=== PATIENT | female | born 1950 | race Caucasian/White ===

== ENCOUNTER → 2017-11-08 11:42 | Outpatient (CLI) | payer MEDICARE, OTHER, SELFPAY ==
[2017-11-08 14:31] LABS: BUN 12 mg/dL (7-18); Chloride 101 mmol/L (98-107); Creatinine, Serum 0.75 mg/dL (0.55-1.02); EST Glomerular Filtration Rate 83 mL/min (>60); Est Glom Filt Rate - Afr Amer 100 mL/min (>60); Glucose 79 mg/dL (74-106); Sodium Level 137 mmol/L (136-145)
[2017-11-09 08:26] LABS: Vitamin D,25 Hydroxy 53.9 ng/mL (29.95-100.01)
== END ==
PROVIDERS: Family Provider Family Medicine; PCP Family Medicine
DX: M81.0 Age-related osteoporosis without current pathological fracture (principal)
CPT/HCPCS: 36415; 80069; 82306

== ENCOUNTER → 2017-11-21 15:28 | Outpatient (CLI) | payer MEDICARE, OTHER, SELFPAY ==
--- NOTE | 2017-11-21 15:34 | RAD_ITS ---
STUDY: X-RAY - PELVIS AND BILATERAL HIPS REASON FOR EXAM: Female, 67 years old. Chronic pain TECHNIQUE: Radiological exam, hip, bilateral, with pelvis when performed; 3-4 views COMPARISON: None. FINDINGS: There is a non-specific bowel gas pattern. Normal visualized soft tissue structures. Normal bilateral iliac wings, sacroiliac joints and visualized sacrum. Normal bilateral superior and inferior pubic rami. Normal pubic symphysis. Normal bilateral ischial tuberosities. 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 Probable 2 cm subchondral cyst. Sclerotic and mildly irregular acetabulum. There is moderate articular joint space narrowing of the right hip. Normal visualized left femoral head. Normal left acetabulum. There is mild articular joint space narrowing of the left hip. RAD/Hips B/L min 2 views w/ Pelvis IMPRESSION: No acute fracture or dislocation. Degenerative changes of the right hip. Electronically Signed: Keshawn Lamb MD at 16:46 EDT , Service support ,
[2017-11-26 14:47] LABS: HPV Reflexed? NOT INDICATED
== END ==
PROVIDERS: Family Provider Family Medicine; PCP Family Medicine; Visit Provider Family Medicine
DX: Z01.419 Encounter for gynecological examination (general) (routine) without abnormal findings (principal); M76.891 Other specified enthesopathies of right lower limb, excluding foot; M76.01 Gluteal tendinitis, right hip; M76.10 Psoas tendinitis, unspecified hip
CPT/HCPCS: 73521; 88175; 97110; G0145

== ENCOUNTER 2017-12-06 14:00 | Outpatient (RCR) | payer MEDICARE, OTHER, SELFPAY ==
--- NOTE | 2017-11-16 15:02 | HP.PTEVAL_ITS ---
Patient's Visit Information DUANE MIRANDA is a 66 year old F referred to Physical Therapy by Alirio Abbott with a diagnosis of RIGHT HIP TENDINOSIS,/PSOAS -ILLIACUS DYSFUNCTION. Date of Evaluation: 11/16/17 Physical Therapist: Maciej Baldwin PT, - Visit Plan Frequency: 1x/Week Duration: 5WEEKS Plan: ROM ,FLEXABLITY ,GRADED STRENGTHENING. NO US H/O LYPHOMA CA - Subjective Subjective: This 66 y/o male presents to physical therapy with right tendosis psoas/illacus tedon dysfunction. Patient has had anterior hip pain for several months. Symptoms worse getting in out of car ,stride lengt,stairs ,squatting, bending over in chair. Patient sleeping okay at night. Denies parathesai/ tingling. Sleeping good at night. Coughing sneezing negative. Seen DR recommended PT ant-inflammatory meloxicam. SOCAIL: . VOCATION: retired - Pain Right Hip Pain Intensity (Out of 10): 1 Pain Intensity Range: 10 Comment: anterior - Objective POSTURE: mild foward posture. PALPATION: unremarable. GAIT: mild foward posture reciprocal. NEURO: denies parathesia /tingling. AROM: hip flexion 95 degrees ,hip abd 40 degrees ,knee flexion 0-125 degrees,IR 5 degrees pain on right,ER 30 degrees. MMT: quads/hams 4/5,hip flexion 4-/5,hip abd 3/5 right , left 3+/5. FLEXABLITYl: PIRIFORMIS MOD TIGHT - Special Tests L/S Slump test left side: Negative L/S Slump test right side: Negative L/S Left Straight Leg Raise: Negative L/S Right Straight Leg Raise: Negative R Hip Scour: Positive R Hip Quadrant - Intraarticular Pathology: Negative R Hip CHELSEA - Intraarticular Pathology: Positive R Hip Trendelenberg - Glut Medius: Negative R Hip Tammy - IT Band: Positive - Goals Goal 1:: Independant with HEP Goal Time Frame: 4-6 Weeks Goal 2:: Patient decrease hip pain by 50% or greater to improve function with walking and standing Goal Time Frame: 4-6 Weeks Goal 3:: Patient increase strength of hip abd 3+/5 to improve function with walking. Goal Time Frame: 4-6 Weeks Goal 4:: Patient improve hip flexion by 100 degrees to improve function with walking and stairs Goal Time Frame: 4-6 Weeks Goal 5:: Patient improve function and ADL'S with min limitations Goal Time Frame: 4-6 Weeks - Rehabilitation Potential Physical Therapy Diagnosis: This patient appears to have possible OA right hip with + scouring,decrease hip flexion with pain ,weakness hip abd impairs stairs walking difficulty with walking,could benifit from x-ray hip Rehabilitation Potential: Good - Anticipated Interventions Patient/Client Instruction: Educate patient on: Condition, Plan of Care For the Purpose of:: To decrease pain, To increase ROM, To improve muscle performance and motor function, To improve ability to perform ADL's, To increase tolerance to activity/condition/position, To improve ability of physical actions for home/community/work/leisure, To improve health of tissue, To decrease soft tissue restriction, To increase flexibility/ROM, To improve endurance, To improve ability to perform tasks related to life management Therapeutic Exercise to Include: Strength training, Postural training, Flexibilty training, Passive ROM, Active ROM Comment: HIP For the Purpose of:: To decrease pain, To increase ROM, To improve muscle performance and motor function, To improve ability to perform ADL's, To increase tolerance to activity/condition/position, To improve ability of physical actions for home/community/work/leisure, To improve health of tissue, To decrease soft tissue restriction, To increase flexibility/ROM, To reduce risk of recurrence, To improve ability to perform tasks related to life management Thank you for the opportunity to evaluate your patient. For Medicare and Medicare HMO plans, please review the plan of care and approve it. It will need to be FAXED BACK to us at [phone] for Medicare purposes. Please let me know if there are questions or concerns regarding this plan of care. Physician Signature: Date:
--- NOTE | 2018-04-03 11:00 | HP.PTDCNRP_ITS ---
HP - Discharge Summary (1) - Patient Information DUANE MIRANDA was seen in my office for initial evaluation on 11/16/17. The following Plan of Care was established for this patient: Initial Frequency: 1x/Week Initial Duration: 5WEEKS - Anticipated Interventions Patient/Client Instruction: Educate patient on: Condition, Plan of Care For the Purpose of:: To decrease pain, To increase ROM, To improve muscle per formance and motor function, To improve ability to perform ADL's, To increase tolerance to activity/condition/position, To improve ability of physical actions for home/community/work/leisure, To improve health of tissue, To decrease soft tissue restriction, To increase flexibility/ROM, To improve endurance, To improve ability to perform tasks related to life management Therapeutic Exercise to Include: Strength training, Postural training, Flexibilty training, Passive ROM, Active ROM For the Purpose of:: To decrease pain, To increase ROM, To improve muscle performance and motor function, To improve ability to perform ADL's, To increase tolerance to activity/condition/position, To improve ability of physical actions for home/community/work/leisure, To improve health of tissue, To decrease soft tissue restriction, To increase flexibility/ROM, To reduce risk of recurrence, To improve ability to perform tasks related to life management This patient was last seen in our office 12/06/17. Pertinent comments regarding their Physical therapy will appear below: This patient seen for right hip pain tendonitis with patient doing well min pain . Tratment focusing on flexablity ,strengthening and modalties. At this point I will be discontinuing this patient from physical therapy. I would be happy to see this patient again in the future if found appropriate by the physician. Thank you! Maciej Baldwin, PT,
== END 2017-12-06 19:00 | disposition home or self-care (01) ==
LOC: PT 14:00
PROVIDERS: Family Provider Family Medicine; PCP Family Medicine; Visit Provider Family Medicine
DX: M76.01 Gluteal tendinitis, right hip (principal); M76.10 Psoas tendinitis, unspecified hip
CPT/HCPCS: 97110; 97162

== ENCOUNTER → 2018-05-22 14:02 | Outpatient (CLI) | payer MEDICARE, OTHER, SELFPAY ==
--- NOTE | 2018-05-22 14:26 | RAD_ITS ---
STUDY: X-RAY - THORACIC SPINE REASON FOR EXAM: Female, 67 years old. Back pain TECHNIQUE: 2 view(s) of the thoracic spine were obtained. COMPARISON: CT dated 12/11/2013 FINDINGS: There is a moderate compression deformity of the T12 vertebral body which is stable when compared with the CT dated 12/11/2013. The remainder of the thoracic vertebral bodies are intact. There are stable mild degenerative changes. RAD/Thoracic Spine 2 Views IMPRESSION: Stable moderate compression deformity of T12. No acute fracture or dislocation in the thoracic spine. Stable mild degenerative changes. Electronically Signed: Marcelino Burrell, at 15:03 EST Tel , Service support ,
--- NOTE | 2018-05-22 14:28 | RAD_ITS ---
STUDY: X-RAY - LUMBAR SPINE REASON FOR EXAM: Female, 67 years old. Back pain TECHNIQUE: 5 view(s) of the lumbar spine were obtained. COMPARISON: CT dated 12/11/2013 FINDINGS: There is a moderate compression deformity of the T12 vertebral body which is stable when compared with the CT dated 12/11/2013. There is no evidence of fracture dislocation in the lumbar spine. There are stable moderate degenerative changes. RAD/L/S Spine Min 4 Views IMPRESSION: No fracture or dislocation in the lumbar spine. Stable moderate degenerative changes. Electronically Signed: Marcelino Burrell, at 15:05 EST Tel , Service support ,
[2018-05-22 16:03] LABS: Absolute Lymphocyte Count 0.99 X10^3/ul (0.83-4.51); Absolute Neutrophil Count 2.7 X10^3/uL (2.0-7.7); Basophil# 0.02 X10^3/uL; Basophil% 0.5 % (0-1); Eosinophil# 0.16 X10^3/uL; Eosinophils% 3.8 % (0-5); Hematocrit 37.6 % (37-47); Hemoglobin 12.3 g/dl (12.0-15.0); Lymphocyte # 0.99 X10^3/ul (4.0); Lymphocyte % 23.5 % (19-41); Mean Corp Hgb Conc 32.7 g/gl (32-36); Mean Corpuscular Hgb 33.2 pg (27.0-32.0); Mean Corpuscular Volume 101.3 fL (81-99); Mean Platelet Vol. 10.5 fl (6.2-12.0); Monocyte# 0.38 X10^3/uL; Neutrophil # 2.65 X10^3/uL (2.7-7.7); Platelet Count 264 K/mm3 (150-450); RBC Distribution Width SD 50.1 fl (35.1-43.9); Red Blood Count 3.71 M/mm3 (4.2-5.4); White Blood Count 4.2 K/mm3 (4.4-11.0)
[2018-05-22 16:04] LABS: POSITIVE COUNT NO; POSITIVE DIFFERENTIAL NO; POSITIVE MORPHOLOGY NO
[2018-05-22 16:43] LABS: Thyroid Stim Hormone (TSH) 0.92 uIU/mL (0.358-3.74)
--- OUTSIDE RECORDS SUMMARY | 2018-07-25 02:08 | XMS RPT_ITS ---
:1950 Author Organization OHIP Care Team Providers Name Role Phone Alirio Abbott Attending Unavailable Abbott, Alirio Primary Care Unavailable Abbott, Alirio Referring Unavailable Iliana Kate Attending Unavailable Abbott, Alirio Primary Care Unavailable Charles Mello Attending Unavailable Abbott, Alirio Primary Care Unavailable Iliana Kate Consulting Unavailable FAUSTINO CADENA Attending Unavailable FAUSTINO CADENA Referring Unavailable Abbott, Alirio Primary Care Unavailable Alirio Abbott Attending Unavailable Abbott, Alirio Primary Care Unavailable Abbott, Alirio Referring Unavailable Abbott, Alirio Attending Unavailable Abbott, Alirio Referring Unavailable Abbott, Alirio Primary Care Unavailable PROBLEMS PROBLEMS DATE TYPE CONDITION / CODE ATTENDING STATUS SOURCE 05/22/2018 Unknown 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, 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, Community unspecified site / Hospital M12.30(ICD-10) Repository 05/22/2018 Unknown F41.1 - Generalized Abbott, Alirio Active [place] anxiety disorder / Community F41.1(ICD-10) Hospital Repository 05/22/2018 Unknown M54.9 - Dorsalgia, Abbott, Alirio Active [place] unspecified / Community M54.9(ICD-10) Hospital Repository 04/04/2018 Unknown M76.01 - Gluteal Alirio Abbott Active [place] tendinitis, right Community hip / M76.01(ICD-10) Hospital Repository 11/21/2017 Unknown M76.891 - Other Alirio Abbott Active [place] specified Community enthesopathies of Hospital right lower limb, Repository excluding foot / M76.891(ICD-10) 11/08/2017 Unknown M81.0 - Age-related FAUSTINO CADENA Active [place] osteoporosis without Community current pathological Hospital fracture / Repository M81.0(ICD-10) 07/04/2017 Unknown C85.90 - Non-Hodgkin Lavinia, Iliana Active [place] lymphoma, Community unspecified, Hospital unspecified site / Repository C85.90(ICD-10) PROCEDURES PROCEDURES No Procedure Records FoundRESULTS RESULTS THORACIC SPINE 2 Observed: 05/22/2018 Status: F Source: [facility] 2:28 PM [facility] REPOSITORY [facility] Imaging Services [address] [place] [id number] Thoracic Spine 2 Views MR#: [id number] Acct: [id number] Name: LADAN ISBELL Rep #: [id number] : 1950 F 67 From: Marcelino Burrell MD PCP: Alirio Abbott MD Status: REG CLI Study: Thoracic Spine 2 Views Date of Exam: 05/22/18 Exam# [id number] Ordering Dr: Alirio Abbott MD STUDY: X-RAY - THORACIC SPINE REASON FOR EXAM: Female, 67 years old. Back pain TECHNIQUE: 2 view(s) of the thoracic spine were obtained. COMPARISON: CT dated 12/11/2013 FINDINGS: There is a moderate compression deformity of the T12 vertebral body which is stable when compared with the CT dated 12/11/2013. The remainder of the thoracic vertebral bodies are intact. There are stable mild degenerative changes. RAD/Thoracic Spine 2 Views IMPRESSION: Stable moderate compression deformity of T12. No acute fracture or dislocation in the thoracic spine. Stable mild degenerative changes. Electronically Signed: Marcelino Burrell, at 15:03 EST Tel , Service support , CC: Alirio Abbott MD Through Operator: Signed L/S SPINE MIN 4 Observed: 05/22/2018 Status: F Source: [place] VIEWS 2:28 PM [facility] REPOSIT[facility] Imaging Services [address] [place] [address] L/S Spine Min 4 Views MR#: [id number] Acct: [id number] Name: LADAN ISBELL Rep #: [id number] : 1950 F 67 From: Marcelino Burrell MD PCP: Alirio Abbott MD Status: REG CLI Study: L/S Spine Min 4 Views Date of Exam: 05/22/18 Exam# [id number] Ordering Dr: Alirio Abbott MD STUDY: X-RAY - LUMBAR SPINE REASON FOR EXAM: Female, 67 years old. Back pain TECHNIQUE: 5 view(s) of the lumbar spine were obtained. COMPARISON: CT dated 12/11/2013 FINDINGS: There is a moderate compression deformity of the T12 vertebral body which is stable when compared with the CT dated 12/11/2013. There is no evidence of fracture dislocation in the lumbar spine. There are stable moderate degenerative changes. RAD/L/S Spine Min 4 Views IMPRESSION: No fracture or dislocation in the lumbar spine. Stable moderate degenerative changes. Electronically Signed: Marcelino Amandosherri, at 15:05 EST Tel , Service support , CC: Alirio Abbott MD Through Operator: Signed CBC W/DIFF, AUTOMATED Collected: 05/22/2018 Status: F Source: [place] 2:03 PM [facility] REPOS[facility] TYPE CODE TESTS RESULT OUT OF RANGE REFERENCE UNITS LAB L100.1000 4.4-11.0 K/mm3 Low WBC 4.2 LAB L100.1200 4.2-5.4 M/mm3 Low RBC 3.71 LAB L100.1300 12.0-15.0 g/dl Normal HGB 12.3 LAB L100.1400 37-47 % Normal HCT 37.6 LAB L100.1500 81-99 fL High MCV 101.3 LAB L100.1600 27.0-32.0 pg High MCH 33.2 LAB L100.1700 32-36 g/gl Normal MCHC 32.7 LAB L100.1810 11.6-14.6 % Normal RDW CV 14.0 LAB L100.1820 35.1-43.9 fl High RDW SD 50.1 LAB L100.1900 150-450 K/mm3 Normal PLT 264 LAB L100.2000 6.2-12.0 fl Normal MPV 10.5 LAB L100.2100 47-70 % Normal NEUT% 63.0 LAB L100.2200 19-41 % Normal LY% 23.5 LAB L100.2300 0-10 % Normal MONO% 9.0 LAB L100.2400 0-5 % Normal EO% 3.8 LAB L100.2500 0-1 % Normal BASO% 0.5 LAB L100.2550 0.0-0.9 % Normal IM GRAN % 0.200 Result Comment: IG% - Immature Granulocytes (promyelocytes, myelocytes and metamyelocytes) > 1% indicates that a LEFT SHIFT is Present. LAB L100.2620 2.0-7.7 X10 3/uL Normal Absolute Neut 2.7 LAB L100.2720 0.83-4.51 X10 3/ul Normal Absolute Lymph 0.99 Performed By: #### L100.0100 #### [place] [facility] [place] [place] [facility] [address] [place], [place], [id number] THYROID STIM HORMONE Collected: 05/22/2018 Status: F Source: [place] (TSH) 2:03 PM [facility] REPOS[facility] TYPE CODE TESTS RESULT OUT OF RANGE REFERENCE UNITS LAB L501.9520 0.358-3.74 uIU/mL Normal TSH 0.92 Performed By: #### L501.9520 #### [facility] [address] [place], [address] CNCO Observed: 03/09/2018 Status: COMPLETED Source: [place] 6:14 PM [facility] REPOSITORY HNO ID: [id number] Author: Mammography Coordinator Service: (none) Author Type: Physician Type: Letter Filed: 03/13/2018 11:51 PM Note Text: March 09, 2018 PID: [id number] Ladan Isbell [address] [place] [address] [place] [address] Dear Ms. Isbell, We are pleased to inform you that the results of your recent breast imaging exam on 03/09/2018 are normal. Your mammogram demonstrates that you have dense breast tissue, which could hide abnormalities. Dense breast tissue, in and of itself, is a relatively common condition. Therefore, this information is not provided to cause undue concern; rather, it is to raise your awareness and promote discussion with your health care provider regarding the presence of dense breast tissue in addition to other risk factors. Early detection of cancer is very important. We also understand recommendations regarding breast cancer screening are controversial. Please discuss with your primary care provider which strategy is best for you and whether a mammogram is right for you. Your imaging studies and report will be kept on file at [facility] as part of your permanent medical record and are available for your continuing care. Thank you for allowing us to help in meeting your health care needs. Sincerely, Dr. Nichols Interpreting Radiologist [facility] (Normal over 40) UMER SCREENING W JESSICA Observed: 03/09/2018 Status: F Source: [place] 2:50 PM [facility] REPOSITORY * * *Final Report* * * DATE OF EXAM: Mar 09 2018 2:50PM SSW 0582 - UMER SCREENING W JESSICA / PROCEDURE REASON: screening * * * * Physician Interpretation * * * * RESULT: #[id number] - UMER SCREENING W JESSICA BILATERAL DIGITAL SCREENING MAMMOGRAM TOMOSYNTHESIS WITH CAD: 03/09/2018 HISTORY: Screening /Screening Mammogram - patient reports NO symptoms /Screening Mammogram - patient reports NO symptoms /SEE TECH NOTE. RESULT: TECHNIQUE: The study was acquired using full field digital technology and interpreted from soft copy. Digital Breast Tomosynthesis (DBT) images were obtained and used to assist in the interpretation of this examination. Current study was also evaluated with a Computer Aided Detection (CAD). Comparison is made to exams dated: 02/17/2017 mammogram, 02/11/2016 mammogram, and 12/11/2014 mammogram - [facility]. The tissue of both breasts is heterogeneously dense. This may lower the sensitivity of mammography. No significant masses, calcifications, or other findings are seen in either breast. There has been no significant interval change. IMPRESSION: NEGATIVE There is no mammographic evidence of malignancy.A 1 year screening mammogram is recommended. Tatyana brown/aleida:03/09/2018 18:14:52 Police Officer Booking: Kathy COTO(Charity)(Eran), [facility] letter sent: Normal over 40 Mammogram BI-RADS: 1 Negative Multiple national specialty organizations have released breast cancer screening guidelines for women at average risk for developing breast cancer - guidelines that are based on both evidence and opinion, yet differ on when to start and how often to screen for breast cancer. With representation from Breast Imaging, Internal Medicine, Women's Health, Family Medicine, and Medical/Surgical Oncology, the [facility] has carefully reviewed the data and reached the following consensus: 1) All women should engage in shared decision-making with their providers to decide when to start and how often to screen; 2) All women should have the opportunity to start screening mammography at age 40; 3) For women ages 45-55, we recommend annual screening mammograms; 4) For women ages 55 and over, we support both the transition from an annual to a biennial interval if this aligns more with patient's values and preferences, or continuation with annual screening; 5) All women should discuss with their providers when to stop screening mammograms. Through Operator: Aleida Transcribe Date/Time: Mar 09 2018 2:32P Dictated by: TATYANA NICHOLS MD This examination was interpreted and the report reviewed and electronically signed by: TATYANA NICHOLS MD on Mar 09 2018 6:14PM EST [id number] HIPS B/L MIN 2 Observed: 11/21/2017 Status: F Source: [facility] W/ PELVIS 3:35 PM [facility] REPOSITORY [facility] Imaging Services [address] [place] [address] [place] [address] Hips B/L min 2 views w/ Pelvis MR#: [id number] Acct: [id number] Name: LADAN ISBELL Rep #: [id number] : 1950 F 67 From: Keshawn Lamb MD PCP: Alirio Abbott MD Status: REG CLI Study: Hips B/L min 2 views w/ Pelvis Date of Exam: 11/21/17 Exam# [id number] Ordering Dr: Alirio Abbott MD STUDY: X-RAY - PELVIS AND BILATERAL HIPS REASON FOR EXAM: Female, 67 years old. Chronic pain TECHNIQUE: Radiological exam, hip, bilateral, with pelvis when performed; 3-4 views COMPARISON: None. FINDINGS: There is a non-specific bowel gas pattern. Normal visualized soft tissue structures. Normal bilateral iliac wings, sacroiliac joints and visualized sacrum. Normal bilateral superior and inferior pubic rami. Normal pubic symphysis. Normal bilateral ischial tuberosities. 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 Probable 2 cm subchondral cyst. Sclerotic and mildly irregular acetabulum. There is moderate articular joint space narrowing of the right hip. Normal visualized left femoral head. Normal left acetabulum. There is mild articular joint space narrowing of the left hip. RAD/Hips B/L min 2 views w/ Pelvis IMPRESSION: No acute fracture or dislocation. Degenerative changes of the right hip. Electronically Signed: Keshawn Lamb MD at 16:46 EDT , Service support , CC: Alirio Abbott MD Through Operator: Signed PAP I-G W/RFX HRHPV Collected: 11/21/2017 Status: F Source: [place] 3:00 PM [facility] REPOS[facility] Order Comment: CYTOLOGY INFORMATION: - CLINICAL INFORMATION: - DATE LMP/MENOPAUSE: MENOPAUSE - COLLECTION VIAL: Thin Prep Vial - OCCUPATIONAL HEALTH SPECIALIST SOURCE: CERVICAL/ENDOCERVICAL - COLLECTION TECHNIQUE: BRUSH/SPATULA Specimen Comment: [id number] Specimen Comment: No. of containers..01 ThinPrep Vial TYPE CODE TESTS RESULT OUT OF RANGE REFERENCE UNITS LAB L7400.0800 . Normal DIAGN Comment Result Comment: NEGATIVE FOR INTRAEPITHELIAL LESION AND MALIGNANCY. THIS SPECIMEN WAS RESCREENED PART OF OUR PROGRAM MGR PROGRAM. LAB L7400.0900 . Normal ADEQ Comment Result Comment: Satisfactory for evaluation. Endocervical and/or squamous metaplastic cells (endocervical component) are present. LAB L7400.1400 . Normal PERFORM Comment Result Comment: Brian Porter, Station Helper (ASCP) LAB L7400.1500 . Normal QC Comment REV Result Comment: [place] Gleason, Station Helper (ASCP) LAB L7400.2575 . Normal TEST METHOD Comment Result Comment: This liquid based ThinPrep(R) pap test was screened with the use of an image guided system. LAB L7400.2600 . Normal . COMM LAB L7400.2700 . Normal PAPSMR Comment Result Comment: The Pap smear is a screening test designed to aid in the detection of premalignant and malignant conditions of the uterine cervix. It is not a diagnostic procedure and should not be used as the sole means of detecting cervical cancer. Both false-positive and false-negative reports do occur. LAB L7400.2800 . Normal HPV RFLX Comment Result Comment: The HPV DNA reflex criteria were not met with this specimen result therefore, no HPV testing was performed. Performed at: [facility] [id number] Compliance Representative Dealer: Eri Quiroga MD, Phone: [phone] Performed By: #### L7400.0350 #### [facility] (refer to report for specific site) refer to report for address and phone number INITAL EVALUATION (1) Observed: 11/17/2017 Status: F Source: [place] - PT 4:56 PM [facility] REPOSITORY [facility] [place] [address] Fax REHABILITATION SERVICES INITIAL EVALUATION MR#: [id number] Acct: [id number] Name: LADAN ISBELL Rep #: [id number] : 1950 66 From: Maciej Baldwin PT, Cert. MDT, OCS Referring Dr.: Alirio Abbott MD Status: REG RCR Insurance: MEDICARE PART A B [employer] Patient's Visit Information LADAN ISBELL is a 66 year old F referred to Physical Therapy by Alirio Abbott with a diagnosis of RIGHT HIP TENDINOSIS,/PSOAS -ILLIACUS DYSFUNCTION. Date of Evaluation: 11/16/17 Physical Therapist: Maciej Baldwin PT, - Visit Plan Frequency: 1x/Week Duration: 5WEEKS Plan: ROM ,FLEXABLITY ,GRADED STRENGTHENING. NO US H/O LYPHOMA CA - Subjective Subjective: This 66 y/o male presents to physical therapy with right tendosis psoas/illacus tedon dysfunction. Patient has had anterior hip pain for several months. Symptoms worse getting in out of car ,stride lengt,stairs ,squatting,bending over in chair. Patient sleeping okay at night. Denies parathesai/tingling. Sleeping good at night. Coughing sneezing negative. Seen DR recommended PT ant-inflammatory meloxicam. SOCAIL: . VOCATION: retired - Pain Right Hip Pain Intensity (Out of 10): 1 Pain Intensity Range: 10 Comment: anterior - Objective POSTURE: mild foward posture. PALPATION: unremarable. GAIT: mild foward posture reciprocal. NEURO: denies parathesia /tingling. AROM: hip flexion 95 degrees ,hip abd 40 degrees ,knee flexion 0-125 degrees,IR 5 degrees pain on right,ER 30 degrees. MMT: quads/hams 4/5,hip flexion 4-/5,hip abd 3/5 right ,left 3+/5. FLEXABLITYl: PIRIFORMIS MOD TIGHT - Special Tests L/S Slump test left side: Negative L/S Slump test right side: Negative L/S Left Straight Leg Raise: Negative L/S Right Straight Leg Raise: Negative R Hip Scour: Positive R Hip Quadrant - Intraarticular Pathology: Negative R Hip CHELSEA - Intraarticular Pathology: Positive R Hip Trendelenberg - Glut Medius: Negative R Hip Tammy - IT Band: Positive - Goals Goal 1:: Independant with HEP Goal Time Frame: 4-6 Weeks Goal 2:: Patient decrease hip pain by 50% or greater to improve function with walking and standing Goal Time Frame: 4-6 Weeks Goal 3:: Patient increase strength of hip abd 3+/5 to improve function with walking. Goal Time Frame: 4-6 Weeks Goal 4:: Patient improve hip flexion by 100 degrees to improve function with walking and stairs Goal Time Frame: 4-6 Weeks Goal 5:: Patient improve function and ADL'S with min limitations Goal Time Frame: 4-6 Weeks - Rehabilitation Potential Physical Therapy Diagnosis: This patient appears to have possible OA right hip with + scouring,decrease hip flexion with pain ,weakness hip abd impairs stairs walking difficulty with walking,could benifit from x-ray hip Rehabilitation Potential: Good - Anticipated Interventions Patient/Client Instruction: Educate patient on: Condition, Plan of Care For the Purpose of:: To decrease pain, To increase ROM, To improve muscle performance and motor function, To improve ability to perform ADL's, To increase tolerance to activity/condition/position, To improve ability of physical actions for home/community/work/leisure, To improve health of tissue, To decrease soft tissue restriction, To increase flexibility/ROM, To improve endurance, To improve ability to perform tasks related to life management Therapeutic Exercise to Include: Strength training, Postural training, Flexibilty training, Passive ROM, Active ROM Comment: HIP For the Purpose of:: To decrease pain, To increase ROM, To improve muscle performance and motor function, To improve ability to perform ADL's, To increase tolerance to activity/condition/position, To improve ability of physical actions for home/community/work/leisure, To improve health of tissue, To decrease soft tissue restriction, To increase flexibility/ROM, To reduce risk of recurrence, To improve ability to perform tasks related to life management Thank you for the opportunity to evaluate your patient. For Medicare and Medicare HMO plans, please review the plan of care and approve it. It will need to be FAXED BACK to us at [phone] for Medicare purposes. Please let me know if there are questions or concerns regarding this plan of care. Physician Signature: Date: <Electronically signed by Maciej Baldwin PT, Cert. T, OCS> 11/17/17 1656 CC: Alirio Abbott MD LIONEL Signed For Medicare only, by signing this I certify the plan of care. Physicians Signature Date RENAL PROFILE Collected: 11/08/2017 Status: F Source: [facility] 11:52 AM [facility] REPOS[facility] TYPE CODE TESTS RESULT OUT OF RANGE REFERENCE UNITS LAB L501.0100 74-106 mg/dL Normal GLU 79 Result Comment: Please note revised GLUCOSE reference range effective 2017. LAB L501.1000 7-18 mg/dL Normal BUN 12 LAB L501.1100 0.55-1.02 mg/dL Normal CREAT,SERUM 0.75 Result Comment: The validity of the calculated GFR AND GFRAA in patients over 70 years has not been determined. Clinical correlation is essential. LAB L501.1110 >60 mL/min Normal EST GFR 83 Result Comment: Non- GFR Calc LAB L501.1115 >60 mL/min Normal EST GFR - AA 100 Result Comment: GFR Calc LAB L501.1300 10-20 RATIO Normal BUN/CRE 16.0 LAB L501.1800 3.2-5.0 g/dL Normal ALB 4.0 LAB L501.2200 8.5-10.1 mg/dL CA Normal 9.0 LAB L501.2300 2.5-4.9 mg/dL Normal PHOS 3.0 LAB L501.5300 136-145 mmol/L NA Normal 137 LAB L501.5600 3.5-5.1 mmol/L K Normal 4.0 LAB L501.5900 98-107 mmol/L CL Normal 101 LAB L501.6100 21.0-32.0 mmol/L Normal CO2 27.0 Performed By: #### L500.3600 #### [facility] [address] [place], [address] VITAMIN D,25 HYDROXY Collected: 11/08/2017 Status: F Source: [place] 11:52 AM [facility] REPOS[facility] TYPE CODE TESTS RESULT OUT OF RANGE REFERENCE UNITS LAB L506.1000 29.95-100.01 ng/mL Normal Vitamin D 53.9 25-OH Result Comment: Vitamin D 25(OH) Status Range Deficiency <20 ng/mL (50nmol/L) Insuffciency 20 - 30 ng/mL (50 - 75 nmol/L) Sufficiency 30 - 100 ng/mL (75 - 250 nmol/L) Toxicity >100 ng/mL (>250 nmol/L) Performed By: #### L506.1000 #### [facility] [address] [place], [address] ONCOLOGY VISIT REPORT Observed: 07/08/2017 Status: F Source: [place] 12:02 PM [facility] REPOS[facility] [address] [place] [address] OFFICE VISIT Date of Service: 07/05/17 1339 MR#: [id number] Acct: [id number] Name: LADAN ISBELL Rep #: [id number] : 1950 From: Charles Mello MD Age/Sex: 66/F Location: OMD Status: Signed Subjective - Date of Service Date of Service:: 07/05/17 - Chief Complaint Follow-up for non-Hodgkin's lymphoma management - History of Present Illness 66-year-old woman presented with right neck swelling. 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 Bone marrow biopsy on December 06, 2013 was negative for involvement by lymphoma. She was found to have nasopharyngeal lesion, biopsy on January 27, 2015 showed atypical lymphocytes which subsequently resolved. She is currently on observation, comes in for follow-up. She feels well, denies weight loss, night sweats or fever. - Past Medical/Social History Past Medical History Past Medical History: Osteoarthritis,Rheumatoid arthritis Cancer: Lymphoma Past Surgical History Surgical: Carpal tunnel,Tonsillectomy,Tubal ligation Other Surgical History: RIGHT DEEP CERVICAL LYMPH NODE BX Family History Paternal Past Medical History: Heart disease Maternal Past Medical History: Alzheimer's disease Maternal History of Cancer: Colon cancer Social History Smoking Status Former smoker Review of Systems Constitutional:: Denies: Fever, Sweats, Weight loss, Appetite change, Chills Cardiovascular:: Denies: Chest pain, Palpitations, Dyspnea on exertion, Orthopnea, PND, Shortness of breath Respiratory: Denies: Cough, Hemoptysis, Shortness of Breath, Wheezing Gastrointestinal:: Denies: Abdominal pain, Nausea, Vomiting, Diarrhea, Constipation, Hematochezia Genitourinary: Denies: Dysuria, Hematuria, 15, Flank pain Musculoskeletal:: Denies: Back pain, Myalgia, Arthralgia Skin: Denies: Rash, Skin Changes, Wounds Neurological:: Denies: Headache, Dizziness, Visual changes, Tinnitus, Hearing loss Psychiatric: Denies: Anxiety, Depression, Homicidal Ideations, Suicidal Ideations Vital Signs Height 5 ft 6 in Weight: 72.575 kg Weight in Pounds 160.0 lbs Pulse Ox 97 - Physical Exam General: Alert, Oriented x3, No apparent distress HEENT: Atraumatic, PERRLA, EOMI, Normocephalic Oropharynx:: Dry mucosa Neck:: Supple, Trachea midline, - - R sided neck scar.. Negative for: JVD, bilateral Cardiac:: Regular rate, Regular rhythm, Normal S1, Normal S2. Negative for: Murmur Lungs: Clear to auscultation, Excusion symmetrical. Negative for: Rhonchi, Wheezes Abdomen:: Bowel sounds x 4, Soft, Non-tender, Non-distended. Negative for: Hepatosplenomegaly Extremities:: Negative for: Cyanosis, Edema Neurological: Neuro grossly intact Skin:: Negative for: Lesions, Rash, Petechiae, Ecchymosis Psychiatric:: Appropriate affect, Euthymic Lymphatics:: Negative for: Cervical lymphadenopathy, Supraclavicular lymphadenopathy, Axillary lymphadenopathy Laboratory Data: Laboratory Tests WBC 5.1 (4.4-11.0) K/mm3 RBC 3.54 L (4.2-5.4) M/mm3 Hgb 11.9 L (12.0-15.0) g/dl Hct 35.9 L (37-47) % MCV 101.4 H (81-99) fL Assessment and Plan NHL-follicular type. Clinically stable. No evidence of progressive disease. Plan is to continue observation. RTC 1 yr with CBC, CMP/LDH. Medications: Prescriptions This Visit Medication Instructions Recorded ATROVENT NASAL SPRAY 1 spray INHALATION UD 07/28/16 Biotin 1,000 mcg PO BID 07/28/16 Primary Care Provider: Alirio Abbott Referring Provider: - Problem List (1) Follicular non-Hodgkin's lymphoma Status: Chronic Code Visit Office Visits / Consults: 49150 OV L3 Est 07/08/17 1202 <Electronically signed by Charles Mello MD> Date Charles Mello MD Cosigner Signature: Date (if applicable) CC: CBC W/DIFF, AUTOMATED Collected: 07/05/2017 Status: F Source: [place] 12:37 PM [facility] TYPE CODE TESTS RESULT OUT OF RANGE REFERENCE UNITS LAB L100.1000 4.4-11.0 K/mm3 Normal WBC 5.1 LAB L100.1200 4.2-5.4 M/mm3 Low RBC 3.54 LAB L100.1300 12.0-15.0 g/dl Low HGB 11.9 LAB L100.1400 37-47 % Low HCT 35.9 LAB L100.1500 81-99 fL High MCV 101.4 LAB L100.1600 27.0-32.0 pg High MCH 33.6 LAB L100.1700 32-36 g/gl Normal MCHC 33.1 LAB L100.1810 11.6-14.6 % Normal RDW CV 12.8 LAB L100.1820 35.1-43.9 fl High RDW SD 46.9 LAB L100.1900 150-450 K/mm3 Normal PLT 274 LAB L100.2000 6.2-12.0 fl Normal MPV 9.3 LAB L100.2100 47-70 % Normal NEUT% 63.3 LAB L100.2200 19-41 % Normal LY% 20.7 LAB L100.2300 0-10 % Normal MONO% 9.9 LAB L100.2400 0-5 % High EO% 5.3 LAB L100.2500 0-1 % Normal BASO% 0.8 LAB L100.2550 0.0-0.9 % Normal IM GRAN % 0.000 Result Comment: IG% - Immature Granulocytes (promyelocytes, myelocytes and metamyelocytes) > 1% indicates that a LEFT SHIFT is Present. LAB L100.2620 2.0-7.7 X10 3/uL Normal Absolute Neut 3.2 LAB L100.2720 0.83-4.51 X10 3/ul Normal Absolute Lymph 1.05 Performed By: #### L100.0100 #### [facility] [address] [place], [place], [address] COMPREHENSIVE METABOLIC Collected: 07/05/2017 Status: F Source: [facility] 12:37 PM [facility] RE[facility] Order Comment: Reason for Laboratory Test . Serial Specimen #1, #2 or #3? 1 TYPE CODE TESTS RESULT OUT OF RANGE REFERENCE UNITS LAB L501.0100 74-106 mg/dL Normal GLU 86 Result Comment: Please note revised GLUCOSE reference range effective 2017. LAB L501.1000 7-18 mg/dL Normal BUN 13 LAB L501.1100 0.55-1.02 mg/dL Normal CREAT,SERUM 0.64 Result Comment: The validity of the calculated GFR AND GFRAA in patients over 70 years has not been determined. Clinical correlation is essential. LAB L501.1110 >60 mL/min Normal EST GFR 100 Result Comment: Non- GFR Calc LAB L501.1115 >60 mL/min Normal EST GFR - AA 121 Result Comment: GFR Calc LAB L501.1255 ml/min Normal Estimated CRCL 83.13 LAB L501.1300 10-20 RATIO High BUN/CRE 20.4 LAB L501.1500 6.4-8. g/dL Normal 2 T PROT 7.1 LAB L501.1800 3.2-5. g/dL Normal 0 ALB 3.5 LAB L501.1950 2.2-4. g/dL Normal 2 GLOB 3.6 LAB L501.2000 0.9-2. RATIO Normal 4 A/G 1.0 LAB L501.2200 8.5-10 mg/dL Normal .1 CA 8.6 LAB L501.4100 15-37 U/L Normal AST 19 LAB L501.4305 45-117 U/L Normal ALK P 114 LAB L501.4405 13-56 U/L Normal ALT 32 Result Comment: Please note revised ALT reference range effective 2017. LAB L501.4600 0.20-1.00 mg/dL Normal T BILI 0.50 LAB L501.5300 136-145 mmol/L Low NA 132 LAB L501.5600 3.5-5.1 mmol/L Normal K 4.3 LAB L501.5900 98-107 mmol/L Normal CL 98 LAB L501.6100 21.0-32.0 mmol/L Normal CO2 29.0 LAB L501.6200 5-15 Normal GAP 5 Performed By: #### L500.4050, L504.2610 #### [facility] [address] [place], [address] LDH Collected: 07/05/2017 Status: F Source: [facility] 12:37 PM [facility] Order Comment: Reason for Laboratory Test . Serial Specimen #1, #2 or #3? 1 TYPE CODE TESTS RESULT OUT OF RANGE REFERENCE UNITS LAB L504.2610 84-246 U/L Normal LDH 182 Performed By: #### L500.4050, L504.2610 #### [facility] [address] [facility] [place], [place], [address] ALLERGIES ALLERGIES DATE TYPE / CODE NAME / CODE REACTION SEVERITY SOURCE 07/05/2017 Drug Sulfa Itching Unknown [facility] Allergy/4160 (Sulfonamide Hospital 57923(SNOMED Antibiotics)/ Repository CT) [id number](RX NORM) 08/05/2009 Drug SULFA High [facility] Class/749489 (SULFONAMIDE Main [place] 003(SNOMED ANTIBIOTICS) Repository CT) ENCOUNTERS ENCOUNTERS ADMIT/DISCHARGE ACCOUNT ADMITTING ENCOUNTER LOCATION SOURCE NUMBER CLASS 05/22/2018 [id number] Ambulatory [facility] ing:MFPLAB Repository 03/09/2018/03/13/20 [id number] Ambulatory [address] Repository 12/06/2017/12/07/19 [id number] Ambulatory [place] [place] [address] [place] [address] ing:PT Repository 11/21/2017 [id number] Ambulatory [place] [facility] ing:MTRAD Repository 11/08/2017 [id number] Ambulatory [place] [facility] ing:MTLAB Repository 07/05/2017 [id number] Ambulatory [place] [facility] ing:OMD Repository 07/05/2017 [id number] Ambulatory BMSBuilding:B [place] MS.O [facility] [place] [place] Repository PAYERS PAYERS ENCOUNTER GUARANTOR PAYER SUBSCRIBER SOURCE 05/22/2018 LADAN L Primary LADAN L [place] [id number] Insurance:MEDICARE RITTENHOUSEDOB: Community [place] PART A BPolicy [place]: [id number] [id number] Repository [address]Sjq: 330) Date:2018-05-22 [phone] () 05/22/2018 Secondary LADAN L [place] Insurance:HUMANA RITTENHOUSEDOB: [facility] [id number] Hospital Number: Repository [id number] Date:7584-25-21SB [address] [place] [phone]: 05/22/2018 Tertiary NOT GIVENUNK [place] Insurance:SELF PAY [facility] Number: Effective Repository Date:2018-05-22 12/06/2017 LADAN L Primary LADAN L [place] [id number] Insurance:MEDICARE RITTENHOUSEDOB: Community [place] PART A BPolicy Number: [id number] [id number] Repository [address]Xue: 330) Date:2017-10-30 [phone] (HP) 12/06/2017 Secondary LADAN L [place] Insurance:HUMANA RITTENHOUSEDOB: [facility] [id number] Hospital Number: Repository [id number] Date:9367-27-20BG [address] [place] [phone]: 12/06/2017 Tertiary NOT GIVENUNK [place] Insurance:SELF PAY Community INSURANCEPolicy Hospital Number: Effective Repository Date:2017-11-09 11/21/2017 LADAN L Primary LADAN L [place] [id number] Insurance:MEDICARE RITTENHOUSEDOB: Community [place] PART A BPolicy Number: [id number] [id number] Repository [address]Gwr: (330) Date:2017-11-21 [phone] () 11/21/2017 Secondary LADAN L [place] Insurance:HUMANA RITTENHOUSEDOB: Community COMMERCIALPolicy [id number] Hospital Number: Repository [id number] Date:7654-60-86TT [address] [place] [phone]: 11/21/2017 Tertiary NOT GIVENUNK [place] Insurance:SELF PAY [facility] Number: Effective Repository Date:2017-11-21 11/08/2017 LADAN L Primary LADAN L [place] [id number] Insurance:MEDICARE RITTENHOUSEDOB: Community [place] PART A BPolicy Number: [id number] [id number] Repository [address]Zob: (330) Date:2017-11-08 [phone] () 11/08/2017 Secondary LADAN L [place] Insurance:HUMANA RITTENHOUSEDOB: [facility] [id number] Hospital Number: Repository [id number] Date:7488-54-79QN [address] [place] [phone]: 11/08/2017 Tertiary NOT GIVENUNK [place] Insurance:SELF PAY [facility] Number: Effective Repository Date:2017-11-08 07/05/2017 LADAN L Primary LADAN L [place] [id number] Insurance:ANTHEMPolicy RITTENHOUSEDOB: Community [place] Number: [id number] [id number] Repository [address]Juh: ([phone]) Date:6610-27-84Zj [phone] () [address], [place] [address]PV: 07/05/2017 Secondary NOT GIVENUNK [place] Insurance:SELF PAY [facility] Number: Effective Repository Date:2016-12-31 07/05/2017 LADAN [place] Primary LADAN [place] [id number] Insurance:ANTHEMPolicy RITTENHOUSEDOB: Community [place] Number: [id number] [id number] Repository [address]Yem: 330) Date:1231-27-74Hv [phone] () [place], [place] [address]PD: 07/05/2017 Secondary NOT GIVENUNK [place] Insurance:SELF PAY [facility] Number: Effective Repository Date:2017-07-05
== END ==
PROVIDERS: Family Provider Family Medicine; PCP Family Medicine; Referring Provider Family Medicine; Visit Provider Family Medicine
DX: M12.30 Palindromic rheumatism, unspecified site (principal); F41.1 Generalized anxiety disorder; M54.9 Dorsalgia, unspecified
CPT/HCPCS: 36415; 72070; 72110; 84443; 85025

== ENCOUNTER → 2018-11-27 15:02 | Outpatient (CLI) | payer MEDICARE, SELFPAY ==
[2018-07-05 13:40] VITALS: BMI 25.8
[2018-11-27 17:46] LABS: Albumin, Serum 3.8 g/dL (3.2-5.0); BUN 12 mg/dL (7-18); BUN/Creat Ratio 16.3 RATIO (10-20); Calcium,Total 9.3 mg/dL (8.5-10.1); Chloride 99 mmol/L (98-107); Creatinine, Serum 0.74 mg/dL (0.55-1.02); EST Glomerular Filtration Rate 84 mL/min (>60); Est Glom Filt Rate - Afr Amer 102 mL/min (>60); Glucose 90 mg/dL (74-106); Phosphorus 4.1 mg/dL (2.5-4.9); Potassium 4.4 mmol/L (3.5-5.1); Sodium Level 136 mmol/L (136-145)
[2018-11-27 22:00] LABS: Vitamin D,25 Hydroxy 46.1 ng/mL (29.95-100.01)
== END ==
PROVIDERS: Family Provider Family Medicine; PCP Family Medicine
DX: M81.0 Age-related osteoporosis without current pathological fracture (principal)
CPT/HCPCS: 36415; 80069; 82306

== ENCOUNTER → 2019-01-10 06:36 | Outpatient (CLI) | payer MEDICARE, OTHER, SELFPAY ==
[2018-07-05 13:40] VITALS: BMI 25.8
--- NOTE | 2019-01-10 06:47 | MRI_ITS ---
STUDY: MRI RIGHT HIP REASON FOR EXAM: Pain and limited motion of the right hip for years. TECHNIQUE: Standardized fat and water weighted pulse sequences were obtained in all 3 orthogonal planes. COMPARISON: Radiographs 11/21/2017. FINDINGS: There are marginal osteophytes of the right femoral head, chondral loss (proton density sagittal image 15), subchondral cystic change/mild bone edema of the right acetabulum (inversion recovery coronal images 16-18) and very mild subchondral bone edema of the superior right femoral head (inversion recovery coronal image 17). There is a right hip joint effusion (inversion recovery coronal images 12-19). There is tear/degeneration of the right superior labrum (inversion recovery coronal images 16-18) and anterosuperior labrum (proton density sagittal images 15-17) with a paralabral cyst (inversion recovery axial images 16, 17). Normal right femoral neck and intratrochanteric region. There is also mild osteoarthritis of the contralateral left hip (T1 coronal image 16) Normal gluteus minimus, medius and iliopsoas tendons and distal insertions. There is no trochanteric, iliopsoas or iliopectineal bursitis. Normal superior and inferior pubic rami. Normal pubic symphysis. Normal ischial tuberosity. Normal origin of the hamstring tendons. Normal visualized iliac wing, sacroiliac joint, and sacral ala. Normal visualized soft tissue structures of the pelvis. MRI/Lower Ext Joint Only (Routine) IMPRESSION: Osteoarthritis of the right hip. Tear/degeneration of the right labrum with paralabral cyst. Right hip joint effusion. Electronically Signed: Michael Flood MD at 9:06 EDT Tel , Service support ,
== END ==
PROVIDERS: Family Provider Family Medicine; PCP Family Medicine; Referring Provider Internal Medicine Rheumatology; Visit Provider Internal Medicine Rheumatology
DX: M16.6 Other bilateral secondary osteoarthritis of hip (principal)
CPT/HCPCS: 73721

== ENCOUNTER → 2019-11-26 13:54 | Outpatient (CLI) | payer MEDICARE, OTHER, SELFPAY ==
[2019-07-05 13:59] VITALS: BMI 24.8
[2019-11-26 15:06] LABS: Absolute Lymphocyte Count 0.97 X10^3/uL (0.83-4.51); Absolute Neutrophil Count 2.8 X10^3/uL (2.0-7.7); Basophil# 0.04 X10^3/uL; Basophil% 0.9 % (0-1); Eosinophil# 0.16 X10^3/uL; Eosinophils% 3.6 % (0-5); Hematocrit 37.5 % (37-47); Lymphocyte # 0.97 X10^3/ul (4.0); Lymphocyte % 21.6 % (19-41); Mean Corpuscular Hgb 33.8 pg (27.0-32.0); Mean Corpuscular Volume 105.6 fL (81-99); Mean Platelet Vol. 9.9 fl (6.2-12.0); Monocyte# 0.53 X10^3/uL; Monocyte% 11.8 % (0-10); NRBC Flagged by Analyzer 0 % (0-5); Neutrophil # 2.78 X10^3/uL (2.7-7.7); Neutrophil % 61.9 % (47-70); Platelet Count 294 K/mm3 (150-450); RBC Distribution Width CV 12.6 % (11.6-14.6); RBC Distribution Width SD 48.9 fl (35.1-43.9); Red Blood Count 3.55 M/mm3 (4.2-5.4); White Blood Count 4.5 K/mm3 (4.4-11.0)
[2019-11-26 15:39] LABS: ALB/GLOB Ratio 1.1 RATIO (0.9-2.4); AST(SGOT) 31 U/L (15-37); Alanine Aminotransfer ALT/SGPT 41 U/L (13-56); Albumin, Serum 3.6 g/dL (3.2-5.0); Alkaline Phosphatase 100 U/L (45-117); Anion Gap 6 (5-15); BUN 12 mg/dL (7-18); BUN/Creat Ratio 18.5 RATIO (10-20); Chloride 103 mmol/L (98-107); Creatinine, Serum 0.65 mg/dL (0.55-1.02); EST Glomerular Filtration Rate 97 mL/min (>60); Est Glom Filt Rate - Afr Amer 117 mL/min (>60); Globulin 3.3 g/dL (2.2-4.2); Glucose 78 mg/dL (74-106); Potassium 3.8 mmol/L (3.5-5.1); Protein, Total 6.9 g/dL (6.4-8.2); Sodium Level 137 mmol/L (136-145); Thyroid Stim Hormone (TSH) 1.53 uIU/mL (0.358-3.74)
== END ==
PROVIDERS: PCP Family Medicine; Referring Provider Family Medicine; Visit Provider Family Medicine
DX: R19.4 Change in bowel habit (principal)
CPT/HCPCS: 36415; 80053; 84443; 85025

== ENCOUNTER → 2019-12-03 | Outpatient (CLI) | payer MEDICARE, OTHER, SELFPAY ==
[2019-07-05 13:59] VITALS: BMI 24.8
== END | disposition home or self-care (01) ==
PROVIDERS: PCP Family Medicine; Referring Provider Family Medicine; Visit Provider Family Medicine
DX: R19.4 Change in bowel habit (principal)
CPT/HCPCS: 87506

== ENCOUNTER → 2020-02-25 14:01 | Outpatient (CLI) | payer MEDICARE, OTHER, SELFPAY ==
[2019-07-05 13:59] VITALS: BMI 24.8
[2020-02-25 18:10] LABS: Absolute Lymphocyte Count 0.91 X10^3/uL (0.83-4.51); Absolute Neutrophil Count 3.4 X10^3/uL (2.0-7.7); Basophil# 0.06 X10^3/uL; Basophil% 1.2 % (0-1); Eosinophil# 0.27 X10^3/uL; Eosinophils% 5.3 % (0-5); Hematocrit 37.7 % (37-47); Hemoglobin 12.1 g/dL (12.0-15.0); Lymphocyte # 0.91 X10^3/ul (4.0); Lymphocyte % 17.8 % (19-41); Mean Corp Hgb Conc 32.1 g/dL (32-36); Mean Corpuscular Hgb 34.1 pg (27.0-32.0); Mean Corpuscular Volume 106.2 fL (81-99); Monocyte# 0.51 X10^3/uL; NRBC Flagged by Analyzer 0 % (0-5); Neutrophil # 3.35 X10^3/uL (2.7-7.7); Neutrophil % 65.3 % (47-70); Platelet Count 291 K/mm3 (150-450); RBC Distribution Width CV 13.2 % (11.6-14.6); RBC Distribution Width SD 51.8 fl (35.1-43.9); Red Blood Count 3.55 M/mm3 (4.2-5.4); White Blood Count 5.1 K/mm3 (4.4-11.0)
[2020-02-25 18:52] LABS: AST(SGOT) 20 U/L (15-37); Alanine Aminotransfer ALT/SGPT 26 U/L (13-56); Albumin, Serum 3.6 g/dL (3.2-5.0); Alkaline Phosphatase 107 U/L (45-117); Anion Gap 7 (5-15); BUN 11 mg/dL (7-18); BUN/Creat Ratio 16.2 RATIO (10-20); CRP < 2.90 mg/L (0.0-3.0); Calcium,Total 9.1 mg/dL (8.5-10.1); Chloride 101 mmol/L (98-107); Creatinine, Serum 0.68 mg/dL (0.55-1.02); EST Glomerular Filtration Rate 92 mL/min (>60); Est Glom Filt Rate - Afr Amer 111 mL/min (>60); Globulin 3.5 g/dL (2.2-4.2); Glucose 76 mg/dL (74-106); Potassium 4.2 mmol/L (3.5-5.1); Protein, Total 7.1 g/dL (6.4-8.2); Sodium Level 138 mmol/L (136-145)
[2020-02-25 18:57] LABS: Erythrocyte Sedimentation Rate 7 mm/hr (0-30)
== END ==
PROVIDERS: PCP Family Medicine; Visit Provider Family Medicine
DX: R53.83 Other fatigue (principal); R19.7 Diarrhea, unspecified
CPT/HCPCS: 36415; 80053; 84443; 85025; 85652; 86140

== ENCOUNTER → 2020-02-26 | Outpatient (CLI) | payer MEDICARE, OTHER, SELFPAY ==
[2019-07-05 13:59] VITALS: BMI 24.8
[2020-03-10 21:42] LABS: Giardia Lamblia, Stool EIA Negative
== END | disposition home or self-care (01) ==
PROVIDERS: PCP Family Medicine; Referring Provider Family Medicine; Visit Provider Family Medicine
DX: R19.7 Diarrhea, unspecified (principal); R53.83 Other fatigue
CPT/HCPCS: 83630; 87177; 87209; 87329; 87493; 87506

== ENCOUNTER 2020-04-05 12:55 | Emergency (ER) | payer MEDICARE, OTHER, SELFPAY ==
[2019-07-05 13:59] VITALS: BMI 24.8
[2020-04-05 12:55] VITALS: BP 136/75; PULSE 85; RESP 16; TEMP 36.4; O2SAT 96; BMI 25.0
--- NOTE | 2020-04-05 13:15 | RAD_ITS ---
STUDY: X-RAY - UNILATERAL RIBS ( LEFT ) REASON FOR EXAM: Female, 69 years old. COMPLAINS OF LEFT RIB PAIN EXTENDING TO BACK, AFTER GETTING OUT OF CAR SEVERAL DAYS AGO. TECHNIQUE: 4 view(s) of the ribs. COMPARISON: Thoracic spine dated 05/22/2018 and 04/05/2020. FINDINGS: Normal visualized ribs without a demonstrated fracture. There is a stable T12 compression deformity. The visualized lung is clear and expanded. RAD/Ribs Unil 2V No CXR IMPRESSION: Within normal limits x-ray examination of the ribs. Electronically Signed: Lluvia Alba MD at 14:32 EST Tel , Service support ,
--- NOTE | 2020-04-05 13:15 | RAD_ITS ---
STUDY: X-RAY - THORACIC SPINE REASON FOR EXAM: Female, 69 years old. Left-sided pain TECHNIQUE: 4 view(s) of the thoracic spine were obtained. COMPARISON: 05/22/18 FINDINGS: There is no evidence of acute fracture or dislocation in the thoracic spine. There is stable chronic compression deformity of T12. There are stable degenerative changes. RAD/Thoracic Spine 2 Views IMPRESSION: No acute fracture or dislocation in the thoracic spine. Stable chronic compression deformity of T12. Stable degenerative change. Electronically Signed: Marcelino Burrell, at 14:21 EST Tel , Service support ,
--- NOTE | 2020-04-05 13:16 | ED.VIS.BACK ---
History of Present Illness Chief Complaint: Back Informant: Patient Onset: Days - 2 Context: Sudden Onset - while getting out of a car Injury: - - possibly, see above Timing: Continuous Quality: Aching Location: Thoracic - lower posterior ribs, bilat, worse on left Current Severity: Moderate Maximum Severity: Moderate Worsened by: improves with: Movement Relieved by: Remaining Still Associated Symptoms: - - None. No numbness, tingling, weakness, radiation to lower extremities or abdomen, urinary symptoms, or bowel or bladder dysfunction. Narrative: Patient had this pain started suddenly while she was getting up out of a seated position in a car. She states the pain has been persistent since this occurred 2 days ago, she has developed no new symptoms, but she became concerned because she had some pain in her back once and had x-rays that showed a compressed disc. She did not want to just deal with the pain if she is dealing with something dangerous. She has had no syncope or systemic symptoms accompany this. - Past Medical History (1) Rheumatoid arthritis Status: Chronic (2) Follicular non-Hodgkin's lymphoma Status: Chronic Past Medical History - Allergies and Home Meds Allergies/Adverse Reactions: Allergies Sulfa (Sulfonamide Antibiotics) Allergy (Verified 04/05/20 12:58) Itching Primary Care Physician: Alirio Abbott MD [Primary Care Provider] - Smoking Status: Never smoker Review of Systems General: Denies: Chills, Fever, Sweats Eyes: Denies: Visual changes - bilaterally, Diplopia ENT: Denies: Rhinorrhea, Sore throat Cardiovascular: Denies: Chest pain, Palpitations Respiratory: Denies: Dyspnea, Cough, Dyspnea on exertion Gastrointestinal: Denies: Abdominal pain, Nausea, Vomiting, Diarrhea, Melena, Hematochezia Genitourinary: Denies: Dysuria, Hematuria, Frequency Musculoskeletal: Reports: Back pain. Denies: Neck pain, Swelling, Extremity Pain Skin: Denies: Rash, Wounds Neurological: Denies: Headache, Weakness, Numbness Physical Exam Vital Signs/Narrative: Vital Signs Temp Pulse Resp BP Pulse Ox 04/05/20 12:55 97.5 F L 85 16 136/75 H 96 Inital Vital Signs reviewed: Yes General: Well nourished, Well developed, - - NAD. sitting w/ legs hanging over bed comfortably. Head: Normocephalic, Atraumatic Eyes: Perrl, EOMI ENT: Moist mucous membranes, No rhinorrhea Neck: Supple, Nontender Cardiovascular: Regular rate, Regular rhythm, No murmurs Respiratory: No distress, CTA bilaterally, Chest nontender Abdomen: Soft, Nontender, Nondistended, Normal bowel sounds. Negative for: Pulsatile mass Back: Normal Inspection, Paraspinal Tenderness - In lowermost ribs on the left only. No other areas of tenderness., Negative SLR - Right - While sitting, Negative SLR - Left - While sitting. Negative for: Spinal tenderness Extremeties: Nontender, No edema Skin: Normal color, No rash Neuro: Alert, Oriented, Normal Strength, Normal Sensation, Normal DTR, Normal Gait Psychological: Normal affect, Normal Mood Diagnostic/Tx/Re-eval Clinical Impression(s) from Imaging Studies Ribs X-Ray 04/05/20 13:15 IMPRESSION: Within normal limits x-ray examination of the ribs. Electronically Signed: Lluvia Alba MD at 14:32 EST Tel , Service support , Thoracic Spine X-Ray 04/05/20 13:15 IMPRESSION: No acute fracture or dislocation in the thoracic spine. Stable chronic compression deformity of T12. Stable degenerative change. Electronically Signed: Marcelino Burrell, at 14:21 EST Tel , Service support , - Medical Decision Making Patient is reassured x-rays are negative. She did have some relief from tramadol so was given a prescription for a short course and instructions for supportive care for what hopefully is either an intercostal strain, subluxed rib, or simple back myofascial strain. ED Disposition - Plan for ED Patient: Disposition: Home or Assisted Living Diagnosis: Acute thoracic myofascial strain Instructions: ED Back Sprain/Strain Prescriptions: traMADol [Ultram] 50 mg PO Q4H PRN PRN 3 Days #15 tablet PRN Reason: Pain Transmission Status: Sent to [facility] Referrals: Alirio Abbott MD [Primary Care Provider] - 1 Week if not improving
[2020-04-05] MEDS: traMADol 50 MG Tablet PO (13:22)
[2020-04-05 16:02] VITALS: BP 124/68; PULSE 68; RESP 15
== END 2020-04-05 16:04 | disposition home or self-care (01) ==
PROVIDERS: Emergency Provider Emergency Medicine; PCP Family Medicine
DX: S29.012A Strain of muscle and tendon of back wall of thorax, initial encounter (principal); X58.XXXA Exposure to other specified factors, initial encounter; Y93.9 Activity, unspecified; Y92.810 Car as the place of occurrence of the external cause; Y99.9 Unspecified external cause status; M06.9 Rheumatoid arthritis, unspecified; Z79.899 Other long term (current) drug therapy; Z85.72 Personal history of non-Hodgkin lymphomas
CPT/HCPCS: 71100; 72070; 99282

== ENCOUNTER → 2020-04-15 14:29 | Outpatient (CLI) | payer MEDICARE, OTHER, SELFPAY ==
[2020-04-05 12:55] VITALS: BMI 25.0
--- NOTE | 2020-04-15 15:01 | CT_ITS ---
STUDY: CT THORACIC SPINE WITHOUT CONTRAST REASON FOR EXAM: Female, 69 years old. Back pain RADIATION DOSAGE (If Supplied By Facility): CTDIvol = ( 33.68 ) mGy, DLP = ( 1186.77 ) mGycm TECHNIQUE: The patient was scanned in a multi detector CT scanner. High resolution imaging was performed. Images were obtained through the thoracic spine. Sagittal and coronal images were reconstructed. Individualized dose optimization techniques were used for this CT. COMPARISON: CT chest dated 12/11/13. FINDINGS: There is a stable chronic compression deformity of the T12 vertebral body. There is no acute fracture or dislocation in the thoracic spine. There are mild multilevel degenerative changes The visualized paraspinal soft tissues are within normal limits. CT/Spine Thoracic without Contras IMPRESSION: Stable chronic compression deformity of the T12 vertebral body. No acute fracture or dislocation in the thoracic spine. Mild degenerative change. Electronically Signed: Marcelino Burrell, at 21:46 EST Tel , Service support ,
== END ==
PROVIDERS: PCP Family Medicine; Visit Provider Family Medicine
DX: M54.6 Pain in thoracic spine (principal)
CPT/HCPCS: 72128

== ENCOUNTER → 2020-06-24 | Outpatient (CLI) | payer MEDICARE, OTHER, SELFPAY ==
[2020-06-24 14:12] LABS: Bacteria 0 SEEN /hpf (None Seen); Mucous, Urine 0 SEEN /hpf (<or=2+); Red Blood Cells-Urine 0 SEEN /hpf (0-5); Squamous Epithelial Cells - UA 0 SEEN /hpf (5-10)
[2020-06-24 16:06] LABS: Color, Urine Yellow (Yellow); Glucose, Dipstick Normal (Normal); Ketone-Dipstick Negative (Negative); Leukocyte Esterase-Dipstick 100 /ul (Negative); Nitrite-Dipstick Negative (Negative); Occult Blood-Urine 10 /ul (Negative); Protein-Dipstick Negative (Negative); Specific Gravity, Urine 1.015 (1.002-1.030); Urine Bilirubin Dipstick Negative (Negative); Urine Clarity Clear (Clear); Urine Urobilinogen Normal (Normal)
[2020-06-24 16:24] LABS: White Blood Cells 0-5 SEEN /hpf (0-5)
== END | disposition home or self-care (01) ==
LOC: LABSPEC 14:11
PROVIDERS: PCP Family Medicine; Referring Provider Family Medicine; Visit Provider Family Medicine
DX: R30.0 Dysuria (principal)
CPT/HCPCS: 81001; 87077; 87086; 87088; 87186

== ENCOUNTER → 2020-07-10 | Outpatient (CLI) | payer MEDICARE, OTHER, SELFPAY ==
[2020-07-03 14:52] VITALS: BMI 22.6
--- NOTE | 2020-07-10 | BON_PTH ---
PATIENT: DUANE MIRANDA [facility] U#:[id number] AGE/SX: 69/F ROOM: RE07/10/[address]: Dr. Soni Dowd MD : 1950 BED: DIS: 07/10/2020 SPEC #: [id number] RECD: 07/10/20 18:40 STATUS: ANTONINA REQ #: [id number] POPEYE: 07/10/20 00:[address]: Soni Dowd DEPT: SURGICAL PATHOLOGY RECD BY: Lina Pope ENTERED: 07/11/20 08:19 SP TYPE: Bone OTHR DR: Dr. 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 AM:lynn 07/14/2020 MICROSCOPIC DESCRIPTION Slides are reviewed. GROSS DESCRIPTION Received is one container labeled with the patient's name and not further designated. The specimen consists of a scant piece of tissue measuring 0.3 x 0.1 x 0.1 cm. The entire specimen is submitted in one cassette after decalcification. / KESHAWN:lynn 07/11/20 TC:5 CPT: 90505, 07098
== END | disposition home or self-care (01) ==
LOC: LABSPEC 07-11 07:49
PROVIDERS: PCP Family Medicine; Referring Provider Anesthesiology Pain Medicine; Visit Provider Anesthesiology Pain Medicine
DX: M84.48XA Pathological fracture, other site, initial encounter for fracture (principal)
CPT/HCPCS: 88305; 88307; 88311

== ENCOUNTER → 2020-09-10 13:07 | Outpatient (CLI) | payer MEDICARE, OTHER, SELFPAY ==
[2020-07-03 14:52] VITALS: BMI 22.6
--- NOTE | 2020-09-10 13:12 | RAD_ITS ---
STUDY: X-RAY - THORACIC SPINE REASON FOR EXAM: Female, 69 years old. BACK PAIN TECHNIQUE: 3 view(s) of the thoracic spine were obtained. COMPARISON: None. FINDINGS: There is an increase in the normal thoracic kyphosis. There is no substantial scoliosis. There is demineralization of the thoracic spine with endplate spondylosis. Loss of height of mid and lower dorsal vertebrae. There is evidence of prior vertebroplasty of the T12 vertebrae. There is multilevel disc space narrowing of the thoracic spine. The soft tissue structures are unremarkable. RAD/Thoracic Spine 3 Views IMPRESSION: Increased kyphosis with the multiple compression fractures of the mid and lower dorsal vertebrae. Prior vertebroplasty of the T12 vertebrae. Electronically Signed: Romain Meraz MD at 12:31 EDT , Service support ,
== END ==
PROVIDERS: PCP Family Medicine; Referring Provider Anesthesiology Pain Medicine; Visit Provider Anesthesiology Pain Medicine
DX: M54.9 Dorsalgia, unspecified (principal)
CPT/HCPCS: 72072

== ENCOUNTER → 2021-01-08 14:17 | Outpatient (CLI) | payer MEDICARE, OTHER, SELFPAY ==
[2021-01-08 15:33] LABS: Vitamin B12 745 pg/mL (211-911)
[2021-01-08 16:08] LABS: GGTP 18 U/L (5-55); Thyroid Stim Hormone (TSH) 1.43 uIU/mL (0.358-3.74)
[2021-01-10 16:40] LABS: Anti-Mitochondrial AB <20.0 Units (0.0-20.0)
[2021-01-12 20:08] LABS: Endomysial Antibody IgA Negative (Negative); Immunoglobulin A 64 mg/dL (87-352)
[2021-01-12 22:02] LABS: Anti-Parietal Cell AB, QN 1.3 Units (0.0-20.0); Intrinsic Factor Ab 0.9 AU/mL (0.0-1.1); t-Transglutaminase IgA <2 U/mL (0-3)
== END ==
PROVIDERS: PCP Family Medicine; Referring Provider Internal Medicine Gastroenterology; Visit Provider Internal Medicine Gastroenterology
DX: C82.80 Other types of follicular lymphoma, unspecified site (principal); M06.9 Rheumatoid arthritis, unspecified; R19.7 Diarrhea, unspecified; K52.9 Noninfective gastroenteritis and colitis, unspecified
CPT/HCPCS: 36415; 82607; 82746; 82784; 82977; 83516; 84443; 86255; 86340

== ENCOUNTER → 2021-01-09 | Outpatient (CLI) | payer MEDICARE, OTHER, SELFPAY ==
[2021-01-12 16:55] LABS: Giardia Lamblia, Stool EIA Negative (Negative)
== END | disposition home or self-care (01) ==
LOC: LABSPEC 14:35
PROVIDERS: PCP Family Medicine; Visit Provider Internal Medicine Gastroenterology
DX: C82.80 Other types of follicular lymphoma, unspecified site (principal); M06.9 Rheumatoid arthritis, unspecified; R19.7 Diarrhea, unspecified
CPT/HCPCS: 83630; 87329

== ENCOUNTER 2021-09-11 20:31 | Emergency (ER) | payer MEDICARE, OTHER, SELFPAY ==
[2021-09-11 20:33] VITALS: BP 152/76; PULSE 71; RESP 16; TEMP 36.5; O2SAT 100; BMI 24.8
--- NOTE | 2021-09-11 21:00 | CT_ITS ---
STUDY: CT BRAIN WITHOUT CONTRAST REASON FOR EXAM: Female, 70 years old. FALL TODAY WHILE WALKING RADIATION DOSAGE (If Supplied By Facility): CTDIvol = ( 44.99 ) mGy, DLP = ( 846.73 ) mGycm TECHNIQUE: Transaxial CT imaging of the brain was performed without administration of intravenous contrast material. Individualized dose optimization techniques were used for this CT. COMPARISON: No relevant priors. FINDINGS: Normal soft tissue structures. Normal calvarium. Normal size ventricles and extra-axial spaces for the patient''s age. Normal white matter tracts of the cerebral hemispheres. Normal basal ganglia and thalami. Normal brainstem. Normal cerebellum. There is no intracranial hemorrhage. There are no findings of an acute ischemic infarction. Normal visualized paranasal sinuses. Nondisplaced nasal fractures with soft tissue swelling. CT/Brain/Head without Contrast IMPRESSION: No acute intracranial hemorrhage or mass effect. Nasal fractures. Electronically Signed: Naman Trammell MD ([place]) at 21:33 EDT ,
--- NOTE | 2021-09-11 21:00 | CT_ITS ---
STUDY: CT FACIAL BONES WITHOUT CONTRAST REASON FOR EXAM: Female, 70 years old. trauma RADIATION DOSAGE (If Supplied By Facility): CTDIvol = ( 29.38 ) mGy, DLP = ( 562.15 ) mGycm TECHNIQUE: The patient was scanned in a multi detector CT scanner. Sagittal and coronal images were reconstructed. Individualized dose optimization techniques were used for this CT. COMPARISON: None. FINDINGS: Normal soft tissue structures. Normal orbital connelly and orbital contents. Nondisplaced nasal bone fractures with overlying soft tissue swelling. Normal facial bones. Rightward deviation of the nasal septum without discrete fracture. Slight mucosal thickening of the inferior maxillary sinuses. CT/Sinus/Facial Bone IMPRESSION: Nasal bone fractures. Electronically Signed: Naman Trammell MD ([place]) at 21:36 EDT ,
--- NOTE | 2021-09-11 21:01 | EDS_ITS ---
HPI HPI - Fall History of Present Illness Chief Complaint: Fall Informant: patient Narrative Narrative: Patient was walking her dog. It started to run. She had to let go of the leash. She ended up tripping falling hitting a curb. She hit her left knee. There is some mild discomfort there. Most of the discomfort is in the nose and forehead area. No nasal bleeding. She bumped her elbow on the right but it does not really hurt. She is not on any anticoagulation. Although she has multiple meds listed she states she is only on multiple vitamins now. No nausea vomiting. No significant generalized headache. No neck pain. No n umbness tingling or weakness. 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 Elevated alkaline phosphatase level Macrocytic anemia Macular degeneration Microscopic colitis Non-Hodgkin lymphoma Osteoarthritis Pelvic pain in female Rheumatoid arthritis Home Medications methotrexate sodium 20 mg PO Q7D 11/22/13 [History Last Taken Unknown] biotin 1,000 mcg PO BID 07/28/16 [History Last Taken Unknown] escitalopram oxalate 10 mg PO DAILY 07/28/16 [History Last Taken Unknown] leucovorin calcium 10 mg PO QWEEK 07/28/16 [History Last Taken Unknown] zoledronic lvks-rdgbuoxo-irdtu 5 mg IV X1 07/05/19 [History Last Taken Unknown] rituximab-hyaluronidase,human 1,400 mg SQ .COMPLEX 04/05/20 [History Last Taken Unknown] conjugated estrogens 0.625 mg/gram vaginal cream 0.625 mg VAGINAL .Weekly g 01/08/21 [History Last Taken Unknown] multivitamin 1 tab PO DAILY 01/08/21 [History Last Taken Unknown] vitamin B complex 1 tab PO DAILY 01/08/21 [History Last Taken Unknown] Calcium Carb/Vitamin D 1 tab PO QDAY 06/24/21 [History Last Taken Unknown] colestipol 1 gram tablet 1 g PO ONCE #60 tab 07/08/21 [Rx Last Taken Unknown] Allergy/AdvReac Type Severity Reaction Status Date / Time Sulfa (Sulfonamide Allergy Itching Verified 09/11/21 20:33 Antibiotics) Family History Mother Colon cancer Alzheimers disease Father Heart disease Surgical History H/O colonoscopy History of carpal tunnel surgery History of esophagogastroduodenoscopy (EGD) History of tonsillectomy History of tubal ligation Status post total hip replacement, right Social History Smoking Status: Never smoker alcohol intake: former substance use type: does not use ROS ROS ED Constitutional Constitutional ED: Denies fever(s) Eyes Eyes: Denies blurry vision or diplopia ENT ENT ED: Reports other Details: Nasal pain ; Denies rhinorrhea Cardiovascular Cardiovascular: Denies chest pain Respiratory/Chest Respiratory/Chest: Denies dyspnea Gastrointestinal Gastrointestinal: Denies nausea or vomiting Genitourinary Genitourinary ED: Denies dysuria or hematuria Musculoskeletal Musculoskeletal: Reports other Details: Left knee pain ; Denies back pain or neck pain Neurologic Neurologic: Reports headache(s) Psychiatric Psychiatric: Denies depression Endocrine Endocrinology: Denies polyuria Hematologic/Lymphatic Hematologic/Lymphatic: Denies easy bleeding or easy bruising Allergic/Immunologic Allergic/Immunologic ED: Denies urticaria EXAM Physical Exam Const Vital Signs: 09/11/21 20:33 09/11/21 20:40 09/11/21 23:17 Temperature 97.7 F L Temperature Source Oral Pulse Rate 71 70 Respiratory Rate 16 16 Respiratory Effort Normal Blood Pressure 152/76 H 130/66 H Blood Pressure Mean 101 87 Pulse Ox 100 95 Oxygen Delivery Method Room Air Room Air Positive well nourished and well developed General Appearance ED: well developed HEENT HEENT Narrative: Patient has obvious contusion to her nose. It does appear to be slightly deviated to the left. There is no septal hematoma found on either side. No real facial tenderness other than the areas around the nose. Eyes PERRL and EOMs intact bilaterally Neck full ROM and supple General: Negative for tenderness Chest Wall inspection of chest normal Resp normal respiratory effort Back/Spine no CVA tenderness Extremity Extremity Narrative: Slight contusion to the anterior left knee with some localized tenderness. No tenderness above or below. No tenderness of the hip. Of note she does have a replaced hip on the right but it is not hurting Neuro oriented x3 Sensorium / Orientation: alert Psych mental status grossly normal Skin Skin Narrative: Contusions to nasal and left knee area. MDM MDM MDM Narrative Medical decision making narrative: Patient CT do show nasal fracture but no significant dislocation of the fragments. Today no acute intracranial process. There is also a small inferior patellar fracture. I discussed the case with orthopedic surgeon Dr. Pang. We will place her in a knee immobilizer and she will follow-up. Patient started to say that her right elbow now was hurting a little bit. So while she was here, we did do an x-ray that showed a small effusion but no indication of fracture. Her range of motion is good. However, if this is still hurting it may need repeat films because of the small effusion. I explained that the nose may need surgery but this is not done acutely. This is normally done when swelling is down. Follow-up with orthopedics and ENT as appropriate. I do not see a septal hematoma. Radiography Diagnostic Testing: Clinical Impression(s) from Imaging Studies Brain CT 09/11/21 21:00 IMPRESSION: No acute intracranial hemorrhage or mass effect. Nasal fractures. Electronically Signed: Naman Trammell MD ([place]) at 21:33 EDT , Facial/Sinus 09/11/21 21:00 IMPRESSION: Nasal bone fractures. Electronically Signed: Naman Trammell MD ([place]) at 21:36 EDT , Knee X-Ray 09/11/21 21:19 IMPRESSION: Inferior patellar fracture. Electronically Signed: Naman Trammell MD ([place]) at 21:42 EDT , Elbow X-Ray 09/11/21 22:49 IMPRESSION: Small joint effusion. No obvious fracture. Radiographically occult fracture cannot be excluded. Electronically Signed: Naman Trammell MD ([place]) at 23:07 EDT , Discharge Plan Triage Chief Complaint: Fall ED Provider: Wil Henderson Dx/Rx/DC Orders Clinical Impression: Fall from slip, trip, or stumble, Closed fracture nasal bone, Closed fracture of left patella, Contusion of right elbow, Effusion of right elbow Instructions: ED Nose Fracture, with X-Ray, ED Patella Fracture Prescriptions: No Action Premarin 0.625 mg/gram cream 0.625 mg vaginal .Weekly RF: 0 vitamin B complex [B Complex-Vitamin B12] Tablet 1 tab PO DAILY RF: 0 multivitamin Tablet 1 tab PO DAILY RF: 0 methotrexate sodium 2.5 MG tablet 20 mg PO Q7D RF: 0 leucovorin calcium 5 MG tablet 10 mg PO QWEEK RF: 0 escitalopram oxalate 10 MG tablet 10 mg PO DAILY RF: 0 biotin 1,000 MCG tablet,chewable 1,000 mcg PO BID RF: 0 zoledronic rkxa-ctusunof-jnzfz 5 MG/100 ML piggyback 5 mg IV X1 RF: 0 Calcium Carb/Vitamin D tablet 1 tab PO QDAY RF: 0 rituximab-hyaluronidase,human 1,400 MG/11.7 ML solution 1,400 mg SQ .COMPLEX RF: 0 colestipol 1 gram tablet 1 g PO ONCE Qty: 60 RF: 2 Primary Care Provider: Alirio Abbott Referrals: Jose Alberto Cha MD [STAFF PHYSICIAN] - 3-5 Days Alirio Abbott MD [Primary Care Provider] - Marcelino Pang MD [STAFF PHYSICIAN] - 3-5 Days Disposition Disposition: Home, Self Care
--- NOTE | 2021-09-11 21:19 | RAD_ITS ---
STUDY: X-RAY - LEFT KNEE REASON FOR EXAM: Female, 70 years old. falling while walking her dogs. left knee pain TECHNIQUE: 4 view(s) of the knee. COMPARISON: None. FINDINGS: Normal visualized distal femur. Normal visualized proximal tibia and fibula. Normal proximal tibiofibular articulation. Nondisplaced fracture of the inferior patella best seen on the lateral view. Normal medial femorotibial compartment. Normal lateral femorotibial compartment. Normal patellofemoral articulation. There is no demonstrated joint effusion. The soft tissue structures are unremarkable. RAD/Knee 4 or More Views IMPRESSION: Inferior patellar fracture. Electronically Signed: Naman Trammell MD ([place]) at 21:42 EDT Reading Location ID and State: [facility] / [place] , Service support ,
--- NOTE | 2021-09-11 22:49 | RAD_ITS ---
STUDY: X-RAY - RIGHT ELBOW REASON FOR EXAM: Female, 70 years old. falling while walking her dogs. Elbow pain TECHNIQUE: 3 view(s) of the elbow. COMPARISON: None. FINDINGS: Normal visualized humerus, radius and ulna. Normal radiocapitellar and ulnotrochlear articulations. Small joint effusion. RAD/Elbow min 3 Views IMPRESSION: Small joint effusion. No obvious fracture. Radiographically occult fracture cannot be excluded. Electronically Signed: Naman Trammell MD ([place]) at 23:07 EDT ,
[2021-09-11 23:17] VITALS: BP 130/66; PULSE 70; RESP 16; O2SAT 95
--- NOTE | 2021-09-11 23:44 | ED.RN ---
[employer] supervisor called and no available walkers in hospital for discharge. pt has a walker at home. dr informed. jeff hanley, rn [phone]
== END 2021-09-11 23:50 | disposition home or self-care (01) ==
PROVIDERS: Emergency Provider Emergency Medicine; PCP Family Medicine; Visit Provider Emergency Medicine
DX: S02.2XXA Fracture of nasal bones, initial encounter for closed fracture (principal); S82.002A Unspecified fracture of left patella, initial encounter for closed fracture; S50.01XA Contusion of right elbow, initial encounter; W18.09XA Striking against other object with subsequent fall, initial encounter; Y93.K1 Activity, walking an animal; Z96.641 Presence of right artificial hip joint
CPT/HCPCS: 70450; 70486; 73080; 73564; 99284

== ENCOUNTER → 2021-12-04 | Outpatient (CLI) | payer MEDICARE, OTHER, SELFPAY ==
--- NOTE | 2021-12-04 13:17 | CT_ITS ---
EXAM: CT CHEST, LUNG CANCER SCREENING WITHOUT INTRAVENOUS CONTRAST CLINICAL INDICATION: nicotine use. 1/2 PPD X 30 YEARS TECHNIQUE: Helically acquired images were obtained of the chest without intravenous contrast using low dose (LDCT) lung cancer screening protocol. This CT exam was performed using one or more of the following dose reduction techniques: automated exposure control, adjustment of the mA and/or kV according to patient size, and/or use of iterative reconstruction technique. This report was created using treadalong report generation technology. COMPARISON: 12/11/2013 FINDINGS: LUNGS AND PLEURAL SPACES: Unremarkable. No mass. No consolidation or edema. No pleural effusion or thickening. No pneumothorax. HEART: Unremarkable. Heart size is normal. No pericardial effusion. No significant coronary artery calcifications. MEDIASTINUM: There is a moderate-sized hiatal hernia. No mediastinal or hilar adenopathy. Esophagus is unremarkable. THYROID: Unremarkable. No thyroid lesions. BONES/JOINTS: There is orthopedic cement in the T12 vertebral body from previous kyphoplasty. No suspicious lytic or blastic abnormality. VASCULATURE: Unremarkable. Thoracic aorta is non-dilated. LYMPH NODES: Unremarkable. No enlarged lymph nodes. CT/Low Dose CT Lung Screening IMPRESSION: 1. No acute abnormalities of the chest. There are no pulmonary nodules. 2. Lung RADS category 1. Electronically Signed: Gal Lincoln MD at 17:34 EDT ,
== END | disposition home or self-care (01) ==
PROVIDERS: PCP Family Medicine; Referring Provider Family Medicine; Visit Provider Family Medicine
DX: Z87.891 Personal history of nicotine dependence (principal)
CPT/HCPCS: 71271

== ENCOUNTER → 2021-12-14 | Outpatient (CLI) | payer MEDICARE, OTHER, SELFPAY ==
[2021-12-14 12:34] LABS: ALB/GLOB Ratio 1.1 RATIO (0.9-2.4); AST(SGOT) 19 U/L (15-37); Alanine Aminotransfer ALT/SGPT 22 U/L (13-56); Albumin, Serum 3.7 g/dL (3.2-5.0); Alkaline Phosphatase 102 U/L (45-117); Anion Gap 7 (5-15); BUN 13 mg/dL (7-18); BUN/Creat Ratio 19.5 RATIO (10-20); Calcium,Total 9.6 mg/dL (8.5-10.1); Chloride 105 mmol/L (98-107); Cholesterol 215 mg/dL (200); Creatinine, Serum 0.67 mg/dL (0.55-1.02); EST Glomerular Filtration Rate 93 mL/min (>60); Est Glom Filt Rate - Afr Amer 113 mL/min (>60); Globulin 3.4 g/dL (2.2-4.2); Glucose 88 mg/dL (74-106); High Density Lipoprotein 66 mg/dL; Potassium 4.2 mmol/L (3.5-5.1); Protein, Total 7.1 g/dL (6.4-8.2); Sodium Level 139 mmol/L (136-145); Thyroid Stim Hormone (TSH) 1.77 uIU/mL (0.358-3.74); Triglycerides 151 mg/dL; Very Low Density Lipoprotein 30 mg/dL (5-40)
== END | disposition home or self-care (01) ==
PROVIDERS: PCP Family Medicine; Referring Provider Family Medicine; Visit Provider Family Medicine
DX: N18.9 Chronic kidney disease, unspecified (principal); E78.5 Hyperlipidemia, unspecified; E03.9 Hypothyroidism, unspecified
CPT/HCPCS: 36415; 80053; 80061; 84443

== ENCOUNTER → 2022-03-17 | Outpatient (CLI) | payer MEDICARE, OTHER, SELFPAY ==
[2022-03-17 12:55] LABS: Vitamin D,25 Hydroxy 68.9 ng/mL
[2022-03-17 13:05] LABS: ALB/GLOB Ratio 1.1 RATIO (0.9-2.4); AST(SGOT) 19 U/L (15-37); Alanine Aminotransfer ALT/SGPT 22 U/L (13-56); Albumin, Serum 3.6 g/dL (3.2-5.0); Alkaline Phosphatase 84 U/L (45-117); Anion Gap 5 (5-15); BUN 19 mg/dL (7-18); Calcium,Total 9.1 mg/dL (8.5-10.1); Chloride 105 mmol/L (98-107); Cholesterol 234 mg/dL (200); Creatinine, Serum 0.61 mg/dL (0.55-1.02); EST Glomerular Filtration Rate 103 mL/min (>60); Est Glom Filt Rate - Afr Amer 125 mL/min (>60); Globulin 3.2 g/dL (2.2-4.2); Glucose 75 mg/dL (74-106); High Density Lipoprotein 74 mg/dL; Potassium 4.3 mmol/L (3.5-5.1); Protein, Total 6.8 g/dL (6.4-8.2); Sodium Level 138 mmol/L (136-145); Triglycerides 100 mg/dL
[2022-03-17 13:06] LABS: Free T3 2.7 pg/mL (2.18-3.98); T4 Free Direct 0.93 ng/dL (0.76-1.46); Very Low Density Lipoprotein 20 mg/dL (5-40)
== END | disposition home or self-care (01) ==
LOC: MTLAB 11:03
PROVIDERS: PCP Family Medicine; Referring Provider Family Medicine; Visit Provider Family Medicine
DX: E03.9 Hypothyroidism, unspecified (principal); M81.0 Age-related osteoporosis without current pathological fracture; N18.1 Chronic kidney disease, stage 1; E78.5 Hyperlipidemia, unspecified
CPT/HCPCS: 36415; 80053; 80061; 82306; 84439; 84443; 84481

== ENCOUNTER → 2022-06-11 | Outpatient (CLI) | payer MEDICARE, OTHER, SELFPAY ==
[2022-06-11 16:03] LABS: Erythrocyte Sedimentation Rate 5 mm/hr (0-30)
[2022-06-11 16:05] LABS: Absolute Lymphocyte Count 1.14 X10^3/uL (0.83-4.51); Absolute Neutrophil Count 3.3 X10^3/uL (2.0-7.7); Basophil# 0.06 X10^3/uL; Basophil% 1.2 % (0-1); Eosinophil# 0.17 X10^3/uL; Eosinophils% 3.3 % (0-5); Hematocrit 40.3 % (37-47); Hemoglobin 13.4 g/dL (12.0-15.0); Lymphocyte # 1.14 X10^3/ul (0.83-4.51); Lymphocyte % 21.9 % (19-41); Mean Corp Hgb Conc 33.3 g/dL (32-36); Mean Corpuscular Volume 105.2 fL (81-99); Mean Platelet Vol. 10.1 fl (6.2-12.0); Monocyte# 0.55 X10^3/uL; Monocyte% 10.6 % (0-10); NRBC Flagged by Analyzer 0 % (0-5); Neutrophil # 3.25 X10^3/uL (2.7-7.7); Neutrophil % 62.4 % (47-70); Platelet Count 252 K/mm3 (150-450); RBC Distribution Width CV 13.2 % (11.6-14.6); RBC Distribution Width SD 50.2 fl (35.1-43.9); Red Blood Count 3.83 M/mm3 (4.2-5.4); White Blood Count 5.2 K/mm3 (4.4-11.0)
[2022-06-11 16:32] LABS: AST(SGOT) 28 U/L (15-37); Alanine Aminotransfer ALT/SGPT 20 U/L (13-56); Albumin, Serum 4.1 g/dL (3.2-5.0); Alkaline Phosphatase 91 U/L (45-117); Anion Gap 6 (5-15); BUN 16 mg/dL (7-18); BUN/Creat Ratio 21.4 RATIO (10-20); Bilirubin, Direct 0.11 mg/dL (0.00-0.30); Calcium,Total 9.5 mg/dL (8.5-10.1); Chloride 102 mmol/L (98-107); Creatinine, Serum 0.75 mg/dL (0.55-1.02); EST Glomerular Filtration Rate 82 mL/min (>60); Est Glom Filt Rate - Afr Amer 99 mL/min (>60); Globulin 3.1 g/dL (2.2-4.2); Glucose 111 mg/dL (74-106); Potassium 4.6 mmol/L (3.5-5.1); Protein, Total 7.2 g/dL (6.4-8.2); Sodium Level 135 mmol/L (136-145)
== END | disposition home or self-care (01) ==
LOC: LAB 15:28
PROVIDERS: PCP Family Medicine; Visit Provider Surgery
DX: Z01.812 Encounter for preprocedural laboratory examination (principal); Z79.899 Other long term (current) drug therapy; M25.50 Pain in unspecified joint
CPT/HCPCS: 36415; 80048; 80076; 85025; 85652

== ENCOUNTER → 2022-06-14 | Outpatient (CLI) | payer MEDICARE, OTHER, SELFPAY ==
--- NOTE | 2022-06-14 13:48 | EKG12_ITS ---
Test Reason : PRE-OP Blood Pressure : / mmHG Vent. Rate : 061 BPM Atrial Rate : 061 BPM P-R Int : 142 ms QRS Dur : 074 ms QT Int : 402 ms P-R-T Axes : 047 042 061 degrees QTc Int : 404 ms Normal sinus rhythm Normal ECG Confirmed by KIMBERLY ARAGON, ELIDIA ([id number]), commissioning editor TERRANCE SEARS ([id number]) on 06/15/2022 7:40:37 AM Referred By: HALLIE Confirmed By:ELIDIA HARRIS MD
== END | disposition home or self-care (01) ==
LOC: PSN 13:43
PROVIDERS: PCP Family Medicine; Visit Provider Surgery
DX: Z01.810 Encounter for preprocedural cardiovascular examination (principal); Z01.812 Encounter for preprocedural laboratory examination
CPT/HCPCS: 93005

== ENCOUNTER 2022-08-21 16:59 | Inpatient (IN) | payer MEDICARE, OTHER, SELFPAY ==
[2022-08-21 17:00] VITALS: BP 128/63; PULSE 70; RESP 16; TEMP 36.5; O2SAT 96; BMI 27.6
--- NOTE | 2022-08-21 17:08 | RAD_ITS ---
INDICATION: trauma EXAMINATION/TECHNIQUE: X-RAY - XR Hip Unilateral with Pelvis when performed; 2-3 Views COMPARISON: None. FINDINGS: Nondisplaced subcapital impaction fracture of the left femoral neck. Right hip arthroplasty. Joint spaces are well-maintained. Normal alignment. Soft tissues are unremarkable. No radiopaque foreign body or soft tissue gas. RAD/HIP, UNI W/ Pelvis 2-3 Views IMPRESSION: Nondisplaced left femoral neck fracture. Electronically Signed: Keyona Dickinson MD at 18:07 EDT Reading Location ID and State: [id number] / Tel , Service support ,
--- NOTE | 2022-08-21 17:08 | RAD_ITS ---
INDICATION: trauma EXAMINATION/TECHNIQUE: X-RAY - LEFT XR Knee Complete 4 Views or More 4 VIEWS COMPARISON: FINDINGS: No acute fracture or dislocation. No destructive bone changes. Joint spaces are well-maintained. Normal alignment. Soft tissues are unremarkable. No radiopaque foreign body or soft tissue gas. RAD/Knee 4 or More Views IMPRESSION: Negative study. Electronically Signed: Keyona Dickinson MD at 18:10 EDT Reading Location ID and State: [id number] / Tel , Service support ,
--- NOTE | 2022-08-21 17:10 | EDS_ITS ---
HPI HPI - Fall History of Present Illness Chief Complaint: Fall Informant: patient and EMS Narrative Narrative: Patient had a mechanical fall. She caught her toe and tripped on a bar that was on the ground that was meant to hold carts in line. This caused her to fall onto her left knee and hip. She states she never hit her head or lost consciousness. This was a mechanical trip and fall. She states she has pain in the left knee and the lateral aspect of the left hip and the medial aspect of the right ankle. Nothing else hurts. She is not on blood thinners. She has been feeling fine leading up to this. 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 Elevated alkaline phosphatase level Macrocytic anemia Macular degeneration Microscopic colitis Non-Hodgkin lymphoma Osteoarthritis Pelvic pain in female Rheumatoid arthritis Home Medications methotrexate sodium 2.5 mg tablet 20 mg PO Q7D 11/22/13 [History Last Taken Unknown] biotin 1,000 mcg chewable tablet 1,000 mcg PO BID 07/28/16 [History Last Taken Unknown] escitalopram oxalate 10 mg tablet 10 mg PO DAILY 07/28/16 [History Last Taken Unknown] leucovorin calcium 5 mg tablet 10 mg PO QWEEK 07/28/16 [History Last Taken Unknown] zoledronic acid 5 mg/100 mL in mannitol 5 %-water intravenous piggybck 5 mg IV X1 07/05/19 [History Last Taken Unknown] rituximab 1,400 mg/11.7 mL (120 mg/mL)-hyaluronidase subcutaneous soln 1,400 mg SQ .COMPLEX 04/05/20 [History Last Taken Unknown] conjugated estrogens 0.625 mg/gram vaginal cream (Premarin) 0.625 mg vaginal .Weekly 01/08/21 [History Last Taken Unknown] multivitamin 1 tab PO DAILY 01/08/21 [History Last Taken Unknown] vitamin B complex (B Complex-Vitamin B12 tablet) 1 tab PO DAILY 01/08/21 [History Last Taken Unknown] Calcium Carb/Vitamin D 1 tab PO QDAY 06/24/21 [History Last Taken Unknown] colestipol 1 gram tablet 1 g PO ONCE #60 tabs 07/08/21 [Rx Last Taken Unknown] Allergy/AdvReac Type Severity Reaction Status Date / Time Sulfa (Sulfonamide Allergy Itching Verified 08/21/22 17:02 Antibiotics) Family History Mother Colon cancer Alzheimers disease Father Heart disease Surgical History H/O colonoscopy History of carpal tunnel surgery History of esophagogastroduodenoscopy (EGD) History of tonsillectomy History of tubal ligation Status post total hip replacement, right Social History Smoking Status: Light Smoker (<10/day) alcohol intake: former substance use type: does not use ROS ROS ED Constitutional Constitutional ED: Denies chills or fever(s) Eyes Eyes: Denies change in vision or diplopia ENT ENT ED: Denies rhinorrhea Cardiovascular Cardiovascular: Denies chest pain Respiratory/Chest Respiratory/Chest: Denies cough Gastrointestinal Gastrointestinal: Denies nausea or vomiting Genitourinary Genitourinary ED: Denies hematuria Musculoskeletal Musculoskeletal: Reports arthralgias; Denies back pain or neck pain Integumentary Reports Abrasions and other Details: Very slight abrasion to left anterior medial knee. ; Denies rash Hematologic/Lymphatic Hematologic/Lymphatic: Denies easy bleeding or easy bruising Allergic/Immunologic Allergic/Immunologic ED: Denies urticaria EXAM Physical Exam Narrative Exam Narrative: Patient is awake alert sitting comfortably in bed. Nontoxic. HEENT shows no sign of trauma or injury. Neck is supple with no pain with motion. Heart is regular. Lungs are completely clear breathing is easy unlabored and saturations are normal. Abdomen soft nontender Back shows no spinal thoracic or lumbar sacral area tenderness. Extremities there is a little bit of tenderness over near the greater trochanter on the left hip but none in the groin. The knee shows a very slight abrasion on the anterior medial aspect overlying the tibial area. But there is no effusion. Patella is intact and her extensor mechanism is intact. No deformity. There is also a slight amount of tenderness over the medial malleolus of the right ankle. None laterally. Calcaneus is nontender. No tenderness more proximally up the leg. Achilles is intact by palpation and Gordon test. No fifth metatarsal tenderness. Neurologically she is awake alert appropriate with intact sensation and strength. Const Vital Signs: 08/21/22 17:00 08/21/22 17:03 Temperature 97.7 F L Temperature Source Temporal Pulse Rate 70 Respiratory Rate 16 Respiratory Effort Normal Respiratory Pattern Normal Blood Pressure 128/63 H Blood Pressure Mean 84 Pulse Ox 96 Oxygen Delivery Method Room Air MDM MDM MDM Narrative Medical decision making narrative: My independent review of the patient's ankle film is negative it is his final reading. My independent interpretation of the left knee is negative and the final is also. My independent interpretation of the left hip is suspicious for femoral n trev/subcapital fracture. I did order a CT because I thought there may be questions of fracture. Final reading does show fracture. Final CT does verify this fracture. Basic CBC looks normal. Basic metabolic panel looks good. I discussed the case with orthopedic surgeon Dr. Vieira who would like to try to get surgery done tomorrow if able. I discussed case with Dr. Pandey hospitalist also. Lab Data Labs: Laboratory Results - last 24 hr 08/21/22 08/21/22 17:50 17:50 WBC 6.6 RBC 3.75 L Hgb 13.0 Hct 39.1 MCV 104.3 H MCH 34.7 H MCHC 33.2 RDW Std Deviation 51.7 H RDW Coeff of Tristan 13.5 Plt Count 250 MPV 9.9 Immature Gran % (Auto) 0.500 Neut % (Auto) 62.0 Lymph % (Auto) 27.1 Metcalfe % (Auto) 7.8 Eos % (Auto) 1.8 Baso % (Auto) 0.8 Absolute Neuts (auto) 4.1 Absolute Lymphs (auto) 1.78 Nucleated RBC % 0 Sodium 134 L Potassium 4.4 Chloride 102 Carbon Dioxide 29.0 Anion Gap 3 L BUN 15 Creatinine 0.65 Estim Creat Clear Calc 43.92 Est GFR (MDRD) Af Amer 116 Est GFR (MDRD) Non-Af 96 BUN/Creatinine Ratio 23.1 H Glucose 81 Calcium 9.7 Radiography Diagnostic Testing: Clinical Impression(s) from Imaging Studies Hip/Pelvis X-Ray 08/21/22 17:08 IMPRESSION: Nondisplaced left femoral neck fracture. Electronically Signed: Keyona Dickinson MD at 18:07 EDT Reading Location ID and State: [id number] / Tel , Service support , Knee X-Ray 08/21/22 17:08 IMPRESSION: Negative study. Electronically Signed: Keyona Dickinson MD at 18:10 EDT Reading Location ID and State: Nestor Spaulding MD Tel , Service support , Ankle X-Ray 08/21/22 17:19 IMPRESSION: Negative. Electronically Signed: Keyona Dickinson MD at 18:33 EDT Reading Location ID and State: Nestor Spaulding MD Tel , Service support , Lower Extremity CT 08/21/22 17:43 IMPRESSION: Acute subcapital fracture of the left femoral neck. Electronically Signed: Keyona Dickinson MD at 19:26 EDT Reading Location ID and State: Nestor Spaulding MD Tel , Service support , Chest X-Ray 08/21/22 18:45 IMPRESSION: No acute cardiopulmonary disease. Electronically Signed: Keyona Dickinson MD at 19:19 EDT Reading Location ID and State: Nestor Spaulding MD Tel , Service support , Management Discussion w/another healthcare provider: Hospitalist and Out Patient Therapist Discharge Plan Triage Chief Complaint: Fall ED Provider: Wil Henderson Dx/Rx/DC Orders Clinical Impression: Fracture of hip, left, closed, Fall from slip, trip, or stumble, Hx of rheumatoid arthritis Prescriptions: No Action Premarin 0.625 mg/gram cream 0.625 mg vaginal .Weekly Rx Instructions: off 5 days; repeat cycle vitamin B complex [B Complex-Vitamin B12] Tablet 1 tab PO DAILY multivitamin Tablet 1 tab PO DAILY methotrexate sodium 2.5 MG tablet 20 mg PO Q7D leucovorin calcium 5 MG tablet 10 mg PO QWEEK escitalopram oxalate 10 MG tablet 10 mg PO DAILY biotin 1,000 MCG tablet,chewable 1,000 mcg PO BID zoledronic hxnz-qrhirjrq-hzonr 5 MG/100 ML piggyback 5 mg IV X1 Rx Instructions: Yearly Calcium Carb/Vitamin D tablet 1 tab PO QDAY rituximab-hyaluronidase,human 1,400 MG/11.7 ML solution 1,400 mg SQ .COMPLEX Rx Instructions: 2x yearly infusion colestipol 1 gram tablet 1 g PO ONCE Qty: 60 2RF Primary Care Provider: Alirio Abbott Referrals: Alirio Abbott MD [Primary Care Provider] - Disposition Disposition: Acute Care Hospital [facility]
--- NOTE | 2022-08-21 17:19 | RAD_ITS ---
INDICATION: trauma EXAMINATION/TECHNIQUE: X-RAY - RIGHT XR Ankle Min 3 Views 3 VIEWS COMPARISON: FINDINGS: No acute fracture or dislocation. No destructive bone changes. Joint spaces are well-maintained. Normal alignment. Soft tissues are unremarkable. No radiopaque foreign body or soft tissue gas. RAD/Ankle min 3 Views IMPRESSION: Negative. Electronically Signed: Keyona Dickinson MD at 18:33 EDT Reading Location ID and State: [id number] / Tel , Service support ,
--- NOTE | 2022-08-21 17:43 | CT_ITS ---
EXAM: CT LEFT LOWER EXTREMITY WITHOUT INTRAVENOUS CONTRAST, HIP CLINICAL INDICATION: pain, trauma TECHNIQUE: Helically acquired images were obtained of the left hip without intravenous contrast. This CT exam was performed using one or more of the following dose reduction techniques: automated exposure control, adjustment of the mA and/or kV according to patient size, and/or use of iterative reconstruction technique. This report was created using Flirq report generation technology. COMPARISON: X-ray hip 08/21/2022. FINDINGS: BONES/JOINTS: Acute, nondisplaced subcapital fracture of the left femoral neck. Minimal apex anterior angulation. Preservation of the joint space. No sclerotic or destructive changes. No additional fracture. No free fluid in the visualized pelvis. SOFT TISSUES: Unremarkable. No soft tissue swelling or gas. No radiopaque foreign body. CT/Extremity Lower without Contra IMPRESSION: Acute subcapital fracture of the left femoral neck. Electronically Signed: Keyona Dickinson MD at 19:26 EDT Reading Location ID and State: [id number] / Tel , Service support ,
[2022-08-21] MEDS: Ondansetron 4 MG/2 ML Vial IV (18:03)
[2022-08-21] MEDS: Morphine 4 MG/ML Syringe IV ×2 (18:03→20:58)
--- NOTE | 2022-08-21 18:39 | EKG12_ITS ---
Test Reason : FALL Blood Pressure : / mmHG Vent. Rate : 069 BPM Atrial Rate : 069 BPM P-R Int : 156 ms QRS Dur : 080 ms QT Int : 394 ms P-R-T Axes : 041 014 022 degrees QTc Int : 422 ms Normal sinus rhythm Normal ECG Confirmed by KIMBERLY ARAGON, ELIDIA ([id number]), tape editor TERRANCE SEARS ([id number]) on 08/23/2022 11:19:54 AM Referred By: Confirmed By:ELIDIA HARRIS MD
--- NOTE | 2022-08-21 18:45 | RAD_ITS ---
INDICATION: trauma EXAMINATION/TECHNIQUE: X-RAY - XR Chest 1 View COMPARISON: CT chest 12/04/2021. FINDINGS: LINES/DEVICES: None. LUNGS: No consolidation, edema or effusion. No pneumothorax. MEDIASTINUM AND CARDIOVASCULAR STRUCTURES: Cardiac silhouette not enlarged. Central airways are unremarkable. Moderate mediastinal mass consistent with hiatal hernia, previously reported. BONES AND SOFT TISSUES: Unremarkable. RAD/Chest 1 View (Portable) IMPRESSION: No acute cardiopulmonary disease. Electronically Signed: Keyona Dickinson MD at 19:19 EDT Reading Location ID and State: [id number] / Tel , Service support ,
[2022-08-21 19:09] LABS: Absolute Lymphocyte Count 1.78 X10^3/uL (0.83-4.51); Absolute Neutrophil Count 4.1 X10^3/uL (2.0-7.7); Basophil# 0.05 X10^3/uL; Basophil% 0.8 % (0-1); Eosinophil# 0.12 X10^3/uL; Eosinophils% 1.8 % (0-5); Hematocrit 39.1 % (37-47); Lymphocyte # 1.78 X10^3/ul (0.83-4.51); Lymphocyte % 27.1 % (19-41); Mean Corp Hgb Conc 33.2 g/dL (32-36); Mean Corpuscular Hgb 34.7 pg (27.0-32.0); Mean Corpuscular Volume 104.3 fL (81-99); Mean Platelet Vol. 9.9 fl (6.2-12.0); Monocyte# 0.51 X10^3/uL; Monocyte% 7.8 % (0-10); NRBC Flagged by Analyzer 0 % (0-5); Neutrophil # 4.09 X10^3/uL (2.7-7.7); Platelet Count 250 K/mm3 (150-450); RBC Distribution Width CV 13.5 % (11.6-14.6); RBC Distribution Width SD 51.7 fl (35.1-43.9); Red Blood Count 3.75 M/mm3 (4.2-5.4); White Blood Count 6.6 K/mm3 (4.4-11.0)
[2022-08-21 19:17] LABS: Anion Gap 3 (5-15); BUN 15 mg/dL (7-18); BUN/Creat Ratio 23.1 RATIO (10-20); Calcium,Total 9.7 mg/dL (8.5-10.1); Chloride 102 mmol/L (98-107); Creatinine, Serum 0.65 mg/dL (0.55-1.02); EST Glomerular Filtration Rate 96 mL/min (>60); Est Glom Filt Rate - Afr Amer 116 mL/min (>60); Estimated Creatinine Clearance 43.92 ml/min; Glucose 81 mg/dL (74-106); Potassium 4.4 mmol/L (3.5-5.1); Sodium Level 134 mmol/L (136-145)
[2022-08-21 19:56] VITALS: BP 124/81; PULSE 75; RESP 16; TEMP 36.9; O2SAT 98
--- NOTE | 2022-08-21 20:13 | HP.PCM.HOS_ITS ---
HPI - General General Date of Admission: 08/21/22 Date of Service: 08/21/22 Chief Complaint: Mechanical fall, L hip pain, debility. HPI Narrative The patient is a 71 y/o F w/ PMHx: Tobacco use (~ 3 cig/day), Microscopic colitis following with Dr. Andrea, Chronic macrocytic anemia, [place] Lymphoma in remission following with Dr. 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 Patient is normally baseline very active even despite her underlying rheumatoid arthritis. She denies any issues with chest discomfort or dyspnea but still has a mild chronic cough following acute COVID 19 viral syndrome approximate 1 month prior to current presentation but this is abated with simple cough drops she notes and is nonproductive. Currently she notes her pain is controlled but with any activity attempts or movement has severe discomfort, sharp to the left hip, 8-10 out of 10 in severity. Work-up in the ED included T97.7, heart 70, BP 120/63, respiratory rate 16, 96% on room air, CBC with WBC 6.6, 113, MCV 104.3, platelet 250 without marked shift, BMP with sodium 134 otherwise not marked appearing, plain film of the hips and pelvis with a nondisplaced left femoral neck fracture, plain film of the left knee unremarkable, plain film of the right ankle unremarkable, CT left lower extremity with acute subcapital fracture of the left femoral neck, chest x-ray with no acute cardiopulmonary findings, EKG was sinus rhythm with no acute evidence of ischemia. ED discussed case with orthopedic surgeon Dr. Vieira and hospitalist also discussed case with him with planned OR 08/22/2022. In the ED patient ministered Zofran 4 mg IV x1 as well as morphine 4 mg IV x1. 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 Elevated alkaline phosphatase level Macrocytic anemia Macular degeneration Microscopic colitis Non-Hodgkin lymphoma Osteoarthritis Pelvic pain in female Rheumatoid arthritis Home Medications methotrexate sodium 2.5 mg tablet 20 mg PO TH 11/22/13 [History Last Taken Unknown] biotin 1,000 mcg chewable tablet 1,000 mcg PO BID 07/28/16 [History Last Taken Unknown] escitalopram oxalate 10 mg tablet 15 mg PO DAILY 07/28/16 [History Last Taken Unknown] leucovorin calcium 5 mg tablet 10 mg PO QWEEK 07/28/16 [History Last Taken Unkno wn] rituximab 1,400 mg/11.7 mL (120 mg/mL)-hyaluronidase subcutaneous soln 1,400 mg SQ .COMPLEX 04/05/20 [History Last Taken Unknown] conjugated estrogens 0.625 mg/gram vaginal cream (Premarin) 0.625 mg vaginal .Weekly 01/08/21 [History Last Taken Unknown] multivitamin 1 tab PO DAILY 01/08/21 [History Last Taken Unknown] vitamin B complex (B Complex-Vitamin B12 tablet) 1 tab PO DAILY 01/08/21 [His tory Last Taken Unknown] Calcium Carb/Vitamin D 1 tab PO QDAY 06/24/21 [History Last Taken Unknown] vitamin D3 500 unit-folic acid 1 mg tablet 1 tab PO DAILY 08/21/22 [History Last Taken Unknown] Allergy/AdvReac Type Severity Reaction Status Date / Time Sulfa (Sulfonamide Allergy Itching Verified 08/21/22 17:02 Antibiotics) Family History Mother Colon cancer Alzheimers disease Father Heart disease Surgical History H/O colonoscopy History of carpal tunnel surgery History of esophagogastroduodenoscopy (EGD) History of tonsillectomy History of tubal ligation Status post total hip replacement, right Social History (Updated 08/21/22 @ 20:[address] Taylor Pandey MD) household members: spouse Smoking Status: Light Smoker (<10/day) alcohol intake: former substance use type: does not use ROS ROS Narrative Admission Review of Systems: CONSTITUTIONAL: No weight loss, fever, chills, + weakness or fatigue. HEENT: Eyes: No visual loss, blurred vision, double vision or yellow sclerae. Ears, Nose, Throat: No hearing loss, sneezing, congestion, runny nose or sore throat. SKIN: No rash or itching, lesions, wounds. CARDIOVASCULAR: No chest pain, chest pressure or chest discomfort, palpitations, edema, orthopnea, syncopal events. RESPIRATORY: No shortness of breath, cough or sputum, wheezing, hemoptysis. GASTROINTESTINAL: No anorexia, nausea, vomiting or diarrhea, abdominal pain, melena, BRBPR. GENITOURINARY: No dysuria, frequency, urgency or retention. NEUROLOGICAL: No headache, dizziness, syncope, paralysis, ataxia, numbness or tingling in the extremities, focal weakness, change in bowel or bladder control, seizure. MUSCULOSKELETAL: + muscle, back pain, joint pain or stiffness. HEMATOLOGIC: + anemia, bleeding or bruising. LYMPHATICS: No enlarged nodes. No history of splenectomy. PSYCHIATRIC: + history of depression or anxiety. ENDOCRINOLOGIC: No reports of sweating, cold or heat intolerance. No polyuria or polydipsia. ALLERGIES: No history of asthma, hives, eczema or rhinitis. Vital Signs Vital Signs Vital Signs: 08/21/22 17:00 08/21/22 17:03 Temperature 97.7 F L Temperature Source Temporal Pulse Rate 70 Respiratory Rate 16 Respiratory Effort Normal Respiratory Pattern Normal Blood Pressure 128/63 H Blood Pressure Mean 84 Pulse Ox 96 Oxygen Delivery Method Room Air Weight Weight: 155 lb 13.869 oz Body Mass Index (BMI) 27.6 Physical Exam Narrative Physical Examination: General: Awake, alert, oriented x 3 and cooperative, laying in the bed, fatigued, pain currently controlled. Skin: Normal color, normal turgor, no icterus, no cyanosis. HEENT: AT/NC, EOMI, PERRLA, mildly dry MM, no carotid bruits or JVD noted. Lungs: CTA bilaterally, moderate effort, mild decrease BL bases, no rales, ronchi or wheezing. Heart: Currently regular rate and rhythm; no gallop, rub audible. Abdomen: Soft, NTTP, ND, mildly hyperactive BS, no HSM. Extremities: No cyanosis, no clubbing, no marked peripheral edema, peripheral pulses intact, status post mechanical fall with left hip fracture. Neurological: Patient awake, alert, oriented as noted, cognitive function intact; pupils equally reactive to light and accommodation, cranial nerves grossly normal, moving all 4 extremities except expected notable limitation left lower extremity given fall with left hip fracture, accordingly strength severely globally decreased. Psychiatric: Affect appears fatigued otherwise normal, no acute evidence of depressive or anxiety feelings. Results Lab / Micro Data Result Diagrams: 08/21/22 17:50 08/21/22 17:50 Labs: Laboratory Results - last 24 hr 08/21/22 17:50: WBC 6.6, RBC 3.75 L, Hgb 13.0, Hct 39.1, MCV 104.3 H, MCH 34.7 H , MCHC 33.2, RDW Std Deviation 51.7 H, RDW Coeff of Tristan 13.5, Plt Count 250, MPV 9.9, Immature Gran % (Auto) 0.500, Neut % (Auto) 62.0, Lymph % (Auto) 27.1, Millard % (Auto) 7.8, Eos % (Auto) 1.8, Baso % (Auto) 0.8, Absolute Neuts (auto) 4.1, Absolute Lymphs (auto) 1.78, Nucleated RBC % 0 08/21/22 17:50: Sodium 134 L, Potassium 4.4, Chloride 102, Carbon Dioxide 29.0, Anion Gap 3 L, BUN 15, Creatinine 0.65, Estim Creat Clear Calc 43.92, Est GFR (MDRD) Af Amer 116, Est GFR (MDRD) Non-Af 96, BUN/Creatinine Ratio 23.1 H, Glucose 81, Calcium 9.7 Radiology Impression Hip/Pelvis X-Ray 08/21/22 17:08 IMPRESSION: Nondisplaced left femoral neck fracture. Electronically Signed: Keyona Dickinson MD at 18:07 EDT Reading Location ID and State: [place] / Tel , Service support , Knee X-Ray 08/21/22 17:08 IMPRESSION: Negative study. Electronically Signed: Keyona Dickinson MD at 18:10 EDT Reading Location ID and State: [place] Spaulding MD Tel , Service support , Ankle X-Ray 08/21/22 17:19 IMPRESSION: Negative. Electronically Signed: Keyona Dickinson MD at 18:33 EDT Reading Location ID and State: [place] / Tel , Service support , Lower Extremity CT 08/21/22 17:43 IMPRESSION: Acute subcapital fracture of the left femoral neck. Electronically Signed: Keyona Dickinson MD at 19:26 EDT Reading Location ID and State: [place] / Tel , Service support , Chest X-Ray 08/21/22 18:45 IMPRESSION: No acute cardiopulmonary disease. Electronically Signed: Keyona Dickinson MD at 19:19 EDT Reading Location ID and State: [place] / Tel , Service support , Assessment & Plan Assessment/Plan (1) Fracture of hip, left, closed: PLAN: Plan The patient is a 71 y/o F w/ PMHx: Tobacco use (~ 3 cig/day), Microscopic colitis following with Dr. Andrea, Chronic macrocytic anemia, NH Lymphoma in remission following with Dr. 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 #1. General debility, left hip pain s/p mechanical fall w/ left acute subcapital fracture left femoral neck: Plain film noting and CT left lower extremity counseling acute subcapital fracture of the left femoral neck. Orthopedic surgery consulted from ED. Will admit to [facility], maintain NPO after midnight for planned OR 08/23/2019, continue gentle IVFs, borrego placement, monitor I/Os, frequent positioning, fall precautions, as needed pain, anti- emetic regimen. PT/OT following operative intervention. CM consulted for discharge planning. Per the surgical risk calculator given underlying comorbidities, baseline normal labs including renal function and ability to perform all her ADLs with an unremarkable EKG and stable vital signs as well as appropriate labs patient considered at this point low risk and agreed to transition to OR in a.m. #2. Rheumatoid arthritis: Patient with outpatient rituximab injections noted although last reported 04/05/2020, also reported prior methotrexate and folic acid, encourage continued outpatient rheumatology evaluation and follow-up. Of note patient's methotrexate appears to be dosed on . #3. Chronic macrocytic anemia: Admission hemoglobin 13, MCV 104.3, baseline hemoglobin appears primarily recently 13 although in the past had been 11-12, continue to trend CBC, continue supplementation. #4. History [place] Lymphoma: Noted to be in remission following with Dr. 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 #5. Anxiety and depression/ADD: We will continue patient home escitalopram regimen. #6. History microscopic colitis: Following with Dr. Andrea, not currently on any chronic regimen, encourage continued follow-up as needed or as previously arranged. #7. Tobacco Abuse: Encouraged cessation, inpatient consultation per RT, NR if desired. #8. Recent COVID-19 acute viral syndrome: Patient with history of COVID illness approximate 1 month prior to current presentation treated with Paxlovid, does note still occasional cough but no continued issues otherwise. #9. DVT prophylaxis: SCDs, hold chemoprophylaxis given planned OR. #10. CODE status: Patient HCPOA is her who is present and her and son as secondary and living will is currently in place. Discussed CODE status at length including difference between FULL code, DNR-CCA and DNR-CC status. Following discussions about the differences in these status, requested Full Code. Advanced Care Planning Face to Face Time: 16 minutes. Admission Evaluation Time spent evaluating chart, patient history, patient evaluation, care planning and discussion with specialists: 75 minutes. Charges/Coding Visit Charges Inpatient E&M: 09364 Init Hosp L3 Procedures Hospitalists Procedures: 33758 Advncd Care Plan 30 Min
[2022-08-21 21:00] VITALS: BP 142/81; PULSE 76; RESP 16; TEMP 36.8; O2SAT 94
[2022-08-21 21:07] LABS: ALB/GLOB Ratio 1.2 RATIO (0.9-2.4); AST(SGOT) 32 U/L (15-37); Alanine Aminotransfer ALT/SGPT 37 U/L (13-56); Albumin, Serum 3.9 g/dL (3.2-5.0); Alkaline Phosphatase 77 U/L (45-117); Globulin 3.2 g/dL (2.2-4.2); Protein, Total 7.1 g/dL (6.4-8.2)
--- NOTE | 2022-08-21 21:13 | CON.PCM.OR_ITS ---
HPI Consult Data Date of Consult: 08/21/22 HPI Narrative HPI Narrative: DUANE MIRANDA, is a 71 F who presents with left hip pain and a nondisplaced femoral neck fracture. Patient had tripped at the pet food store getting some jerry litter. The patient has many animals dogs cats birds and fish. Lives with her . No ambulatory aids. Ground-level fall and no chest pain shortness of breath or loss of consciousness or head injury. 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 Elevated alkaline phosphatase level Macrocytic anemia Macular degeneration Microscopic colitis Non-Hodgkin lymphoma Osteoarthritis Pelvic pain in female Rheumatoid arthritis Home Medications methotrexate sodium 2.5 mg tablet 20 mg PO TH 11/22/13 [History Last Taken Unknown] biotin 1,000 mcg chewable tablet 1,000 mcg PO BID 07/28/16 [History Last Taken Unknown] escitalopram oxalate 10 mg tablet 15 mg PO DAILY 07/28/16 [History Last Taken Unknown] leucovorin calcium 5 mg tablet 10 mg PO QWEEK 07/28/16 [History Last Taken Unknown] rituximab 1,400 mg/11.7 mL (120 mg/mL)-hyaluronidase subcutaneous soln 1,400 mg SQ .COMPLEX 04/05/20 [History Last Taken Unknown] conjugated estrogens 0.625 mg/gram vaginal cream (Premarin) 0.625 mg vaginal .Weekly 01/08/21 [History Last Taken Unknown] multivitamin 1 tab PO DAILY 01/08/21 [History Last Taken Unknown] vitamin B complex (B Complex-Vitamin B12 tablet) 1 tab PO DAILY 01/08/21 [History Last Taken Unknown] Calcium Carb/Vitamin D 1 tab PO QDAY 06/24/21 [History Last Taken Unknown] vitamin D3 500 unit-folic acid 1 mg tablet 1 tab PO DAILY 08/21/22 [History Last Taken Unknown] Allergy/AdvReac Type Severity Reaction Status Date / Time Sulfa (Sulfonamide Allergy Itching Verified 08/21/22 17:02 Antibiotics) Family History Mother Colon cancer Alzheimers disease Father Heart disease Surgical History H/O colonoscopy History of carpal tunnel surgery History of esophagogastroduodenoscopy (EGD) History of tonsillectomy History of tubal ligation Status post total hip replacement, right Social History (Updated 08/21/22 @ 20:[address] Taylor Pandey MD) household members: spouse Smoking Status: Light Smoker (<10/day) alcohol intake: former substance use type: does not use Vital Signs Vital Signs Vital Signs: 08/21/22 17:00 08/21/22 17:03 08/21/22 19:56 Temperature 97.7 F L 98.4 F Temperature Source Temporal Oral Pulse Rate 70 75 Respiratory Rate 16 16 Respiratory Effort Normal Respiratory Pattern Normal Blood Pressure 128/63 H 124/81 H Blood Pressure Mean 84 95 Pulse Ox 96 98 Oxygen Delivery Method Room Air Room Air Weight Weight: 155 lb 13.869 oz Body Mass Index (BMI) 27.6 Physical Exam Const alert, oriented x3 and no apparent distress HEENT normocephalic Eyes EOMs intact bilaterally Resp normal respiratory effort Cardio regular rate GI non-distended Extremity normal capillary refill, no clubbing, cyanosis or edema, no calf tenderness and no pedal edema Extremity Narrative: Closed injury to the left hip. Pain on the lateral aspect of the hip. No obvious deformity. No pain at the knee or ankle. Foot is warm and well- perfused strong tibialis posterior pulse. Normal sensation throughout the dorsu m and plantar aspect of the foot able to wiggle the toes dorsiflex and plantarflex the foot. Lab / Micro Data Result Diagrams: 08/21/22 17:50 08/21/22 17:50 Labs: Laboratory Results - last 24 hr 08/21/22 17:50: WBC 6.6, RBC 3.75 L, Hgb 13.0, Hct 39.1, MCV 104.3 H, MCH 34.7 H , MCHC 33.2, RDW Std Deviation 51.7 H, RDW Coeff of Tristan 13.5, Plt Count 250, MPV 9.9, Immature Gran % (Auto) 0.500, Neut % (Auto) 62.0, Lymph % (Auto) 27.1, Kings % (Auto) 7.8, Eos % (Auto) 1.8, Baso % (Auto) 0.8, Absolute Neuts (auto) 4.1, Absolute Lymphs (auto) 1.78, Nucleated RBC % 0 08/21/22 17:50: Sodium 134 L, Potassium 4.4, Chloride 102, Carbon Dioxide 29.0, Anion Gap 3 L, BUN 15, Creatinine 0.65, Estim Creat Clear Calc 43.92, Est GFR (MDRD) Af Amer 116, Est GFR (MDRD) Non-Af 96, BUN/Creatinine Ratio 23.1 H, Glucose 81, Calcium 9.7, Total Bilirubin 0.50, AST 32, ALT 37, Alkaline Phosphatase 77, Total Protein 7.1, Albumin 3.9, Globulin 3.2, Albumin/Globulin Ratio 1.2 Radiology Impression Hip/Pelvis X-Ray 08/21/22 17:08 IMPRESSION: Nondisplaced left femoral neck fracture. Electronically Signed: Keyona Dickinson MD at 18:07 EDT Reading Location ID and State: [place] Sp[place] MD Tel , Service support , Knee X-Ray 08/21/22 17:08 IMPRESSION: Negative study. Electronically Signed: Keyona Dickinson MD at 18:10 EDT Reading Location ID and State: [place] Sp[place] MD Tel , Service support , Ankle X-Ray 08/21/22 17:19 IMPRESSION: Negative. Electronically Signed: Keyona Dickinson MD at 18:33 EDT Reading Location ID and State: [place] Sp[place] MD Tel , Service support , Lower Extremity CT 08/21/22 17:43 IMPRESSION: Acute subcapital fracture of the left femoral neck. Electronically Signed: Keyona Dickinson MD at 19:26 EDT Reading Location ID and State: [place] Sp[place] MD Tel , Service support , Chest X-Ray 08/21/22 18:45 IMPRESSION: No acute cardiopulmonary disease. Electronically Signed: Keyona Dickinson MD at 19:19 EDT Reading Location ID and State: [id number] / Tel , Service support , Agree nondisplaced valgus impacted femoral neck fracture. Assessment & Plan Assessment/Plan (1) Fracture of hip, left, closed: PLAN: 71-year-old female with a nondisplaced valgus impacted left femoral neck fracture, minimal OA. Discussed pros and cons risk benefits of different forms of treatment nonoperative management vs open reduction internal fixation various constructs for that cannulated screws vs FNS or DHS, as well as Ivan or total hip arthroplasty. Each of these have the pros and cons risks and benefits decided to proceed with cannulated screw fixation accepting the risk of possibly not healing requiring further surgeries to perform arthroplasty, or settling / shortening, rather than proceed immediately to arthroplasty higher risk of instability or other complications with that. Patient has been admitted under the hospitalist service I let the camp housekeeper as well as anesthesia team know we will try to complete the case tomorrow first thing goal under 48 hours for hip fractures typically. For now the patient will be admitted bedrest VTE prophylaxis n.p.o. at midnight, ALEC for now. Patient understands and marked the left hip signed consent form for surgery as well as possible need for blood products. Pros and cons risks and benefits were discussed with the patient including but not limited to infection, pain, stiffness, bleeding, damage to surrounding structures, neurovascular injury, recurrence or retear, failure or wear of hardware or fixation, instability, fracture, deep vein thrombosis and pulmonary embolism, anesthetic risks, , patient dissatisfaction, need for further surgery and other risks. Patient understood and wished to proceed with surgery, and signed the informed consent documentation.
[2022-08-21 21:33] VITALS: BMI 25.4
[2022-08-21] MEDS: Famotidine 20 MG Tablet PO (21:51)
[2022-08-21] MEDS: 0.9% Normal Saline 1,000 ML 100 ML IV (21:51)
[2022-08-21] MEDS: 0.9% Saline Lock 10 ML Syringe IV (21:56)
[2022-08-21] MEDS: CLARIFY ORDER 1 EACH NOTE (22:01)
[2022-08-22] VITALS (15 sets, daily range): BP systolic 88–129; BP diastolic 46–79; PULSE 85–113; RESP 16–18; TEMP 36.6–37.9; O2SAT 88–96; BMI 24.3; BMI 26.2
[2022-08-22] MEDS: 0.9% Saline Lock 10 ML Syringe IV (00:32)
[2022-08-22] MEDS: Morphine 4 MG/ML Syringe IV (00:32)
[2022-08-22] MEDS: Acetaminophen 325 MG Tablet 650 MG PO (05:48)
[2022-08-22 06:26] LABS: Absolute Lymphocyte Count 0.67 X10^3/uL (0.83-4.51); Absolute Neutrophil Count 6.6 X10^3/uL (2.0-7.7); Basophil# 0.04 X10^3/uL; Basophil% 0.5 % (0-1); Eosinophil# 0.06 X10^3/uL; Eosinophils% 0.8 % (0-5); Hematocrit 37.1 % (37-47); Hemoglobin 12.3 g/dL (12.0-15.0); Lymphocyte # 0.67 X10^3/ul (0.83-4.51); Lymphocyte % 8.5 % (19-41); Mean Corp Hgb Conc 33.2 g/dL (32-36); Mean Corpuscular Hgb 35.1 pg (27.0-32.0); Mean Platelet Vol. 9.9 fl (6.2-12.0); Monocyte# 0.53 X10^3/uL; Monocyte% 6.7 % (0-10); NRBC Flagged by Analyzer 0 % (0-5); Neutrophil # 6.57 X10^3/uL (2.7-7.7); Neutrophil % 82.9 % (47-70); Platelet Count 212 K/mm3 (150-450); RBC Distribution Width CV 13.3 % (11.6-14.6); RBC Distribution Width SD 51.7 fl (35.1-43.9); White Blood Count 7.9 K/mm3 (4.4-11.0)
[2022-08-22] MEDS: 0.9% Normal Saline 1,000 ML 100 ML IV ×2 (06:59→08:57)
--- NOTE | 2022-08-22 07:10 | RAD_ITS ---
EXAM: XR LEFT HIP WITH PELVIS WHEN PERFORMED, 1 VIEW CLINICAL INDICATION: FX TECHNIQUE: Frontal view of the left hip with pelvis when performed. This report was created using [employer] report generation technology. COMPARISON: 08/21/2022. FINDINGS: BONES/JOINTS: Intraoperative digital spot radiographs showing penetrating partially-threaded screws following ORIF of left subcapital femoral neck fracture. No destructive or sclerotic lesions. Note that overlapping bowel shadows may however obscure fine detail. Sacroiliac joint is unremarkable. No widening of the pubic symphysis. The articular structures are unremarkable. SOFT TISSUES: Unremarkable. No soft tissue swelling or gas. RAD/Hip 1 view with Pelvis IMPRESSION: Normal intraoperative digital spot radiographs following ORIF of left subcapital femoral neck fracture. Electronically Signed: Waqas Kirk MD at 9:09 EDT ,
--- NOTE | 2022-08-22 07:29 | PCM.PN.HOSP ---
Reason for Visit Reason for Visit: Diagnoses Fracture of unspecified part of neck of left femur, initial encounter for closed fracture (08/21/22) Follow-up for perioperative care of left femoral subcapital fracture. Subjective Subjective Patient had surgery in the morning. Complain of mild to moderate 5/10 pain over left hip operative region. No chest pain or shortness of breath. Objective Data Objective Data Vital Signs: Vital Signs Temp Pulse Resp BP Pulse Ox O2 Del Method O2 Flow Rate 99.7 F H 88 18 96/55 L 92 Nasal Cannula 2 08/22/22 07:00 08/22/22 07:00 08/22/22 07:00 08/22/22 07:00 08/22/22 07:00 08/22/22 07:00 08/22/22 07:00 Oxygen Flow Rate (L/min) 2 Oxygen Delivery Method Nasal Cannula Weight: 148 lb Body Mass Index (BMI) 26.2 Intake & Output: Intake and Output for Last 24 Hours 08/20/22 08/21/22 08/22/22 23:59 23:59 23:59 Intake Total 913.33 / 913.33 Output Total 925 / 925 Balance -11.67 / -11.67 Lab / Micro Data Result Diagrams: 08/22/22 05:25 08/21/22 17:50 Labs: Laboratory Results - last 24 hr 08/21/22 17:50: WBC 6.6, RBC 3.75 L, Hgb 13.0, Hct 39.1, MCV 104.3 H, MCH 34.7 H, MCHC 33.2, RDW Std Deviation 51.7 H, RDW Coeff of Tristan 13.5, Plt Count 250, MPV 9.9, Immature Gran % (Auto) 0.500, Neut % (Auto) 62.0, Lymph % (Auto) 27.1, [place] % (Auto) 7.8, Eos % (Auto) 1.8, Baso % (Auto) 0.8, Absolute Neuts (auto) 4.1, Absolute Lymphs (auto) 1.78, Nucleated RBC % 0 08/21/22 17:50: Sodium 134 L, Potassium 4.4, Chloride 102, Carbon Dioxide 29.0, Anion Gap 3 L, BUN 15, Creatinine 0.65, Estim Creat Clear Calc 43.92, Est GFR (MDRD) Af Amer 116, Est GFR (MDRD) Non-Af 96, BUN/Creatinine Ratio 23.1 H, Glucose 81, Calcium 9.7, Total Bilirubin 0.50, AST 32, ALT 37, Alkaline Phosphatase 77, Total Protein 7.1, Albumin 3.9, Globulin 3.2, Albumin/Globulin Ratio 1.2 08/21/22 23:00: Blood Type A POSITIVE, Antibody Screen NEGATIVE 08/22/22 05:25: WBC 7.9, RBC 3.50 L, Hgb 12.3, Hct 37.1, MCV 106.0 H, MCH 35.1 H, MCHC 33.2, RDW Std Deviation 51.7 H, RDW Coeff of Tristan 13.3, Plt Count 212, MPV 9.9, Immature Gran % (Auto) 0.600, Neut % (Auto) 82.9 H, Lymph % (Auto) 8.5 L, [place] % (Auto) 6.7, Eos % (Auto) 0.8, Baso % (Auto) 0.5, Absolute Neuts (auto) 6.6, Absolute Lymphs (auto) 0.67 L, Nucleated RBC % 0 Radiography Diagnostic Testing: Radiology Impression Hip/Pelvis X-Ray 08/21/22 17:08 IMPRESSION: Nondisplaced left femoral neck fracture. Electronically Signed: Keyona Dickinson MD at 18:07 EDT Reading Location ID and State: [place] MD Tel , Service support , Knee X-Ray 08/21/22 17:08 IMPRESSION: Negative study. Electronically Signed: Keyona Dickinson MD at 18:10 EDT Reading Location ID and State: Nestor Spaul[place] MD Tel , Service support , Ankle X-Ray 08/21/22 17:19 IMPRESSION: Negative. Electronically Signed: Keyona Dickinson MD at 18:33 EDT Reading Location ID and State: Nestor Spaulding MD Tel , Service support , Lower Extremity CT 08/21/22 17:43 IMPRESSION: Acute subcapital fracture of the left femoral neck. Electronically Signed: Keyona Dickinson MD at 19:26 EDT Reading Location ID and State: [place] Tel , Service support , Chest X-Ray 08/21/22 18:45 IMPRESSION: No acute cardiopulmonary disease. Electronically Signed: Keyona Dickinson MD at 19:19 EDT Reading Location ID and State: [place] MD Tel , Service support , Physical Exam Narrative Seen and examined. Patient had a straight catheterization in OR. 01/08/2025 no urine documented in the morning today. Patient had 1 large urine incontinent yesterday. Net positive fluid balance 1098 mL. Physical exam General: Alert, Oriented x3, Cooperative HEENT: Atraumatic, PERRLA, EOMI, Normocephalic Oral: Oral mucosa moist. No Gingival or Mucosal Lesions/ Ulcerations Neck: Supple, No JVD, Negative Carotid Bruits Lungs: Air entry diminished in bilateral lung bases. No crepitation/rhonchi Cardiovascular: Regular rate, Regular Rhythm, Normal S1, Normal S2, grade 2/6 systolic murmur over right second ICS LSB. Abdomen: Bowel Sounds Present, Soft, Non Tender, Non-Distended : No renal angle tenderness. No suprapubic tenderness. Extremities: No edema, Capillary Refill Less than 3 Seconds Skin: No rashes, No breakdown Musculoskeletal: Left femoral perioperative region dry. No staining or hematoma. Mild expected perioperative region tenderness. No Tenderness to Palpation of other joints or Extremities Neurological: Cranial nerves II-XII grossly intact, DTR 2+/4 and Symmetrical, Neuro grossly intact Psych/Mental Status: Flat affect. Assessment & Plan Assessment/Plan (1) Fracture of hip, left, closed: PLAN: Plan 71-year-old female was brought to ED by EMS after fall; lying on her back on the floor. She tripped over a bar that stopped the carts. Complaining of severe left hip and knee pain and also right ankle pain. Denies neck or back pain or loss of consciousness. 1.? Acute debility due to nondisplaced valgus impacted, subcapital left femoral neck fracture with minimal osteoarthritis: Patient is being admitted on MedSurg floor. Patient had CT left lower extremity consistent with diagnosis. Patient seen by orthopedic surgeon Dr. Vieira. Vitals in normal range and twelve-lead EKG unremarkable. Gentle IV fluid, Barker catheter monitor intake and output pain control, PT and OT. OR in the morning today. Patient on Xarelto 10 mg daily from tomorrow evening for 30 days. #2.? Rheumatoid arthritis: Patient with outpatient rituximab injections noted although last reported 04/05/2020, also reported prior methotrexate and folic acid, encourage continued outpatient rheumatology evaluation and follow-up.? Opatient's methotrexate appears to be dosed on . #3.? Chronic macrocytic anemia: Admission hemoglobin 13, MCV 104.3, baseline hemoglobin 11-12. Hemoglobin in the morning 12.3/37%. #4.? History [place] Lymphoma: Noted to be in remission following with Dr. 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 #5.? Anxiety and depression/ADD: continue patient home escitalopram regimen. #6.? History microscopic colitis: Patient follows Dr. Andrea. #7.? Tobacco Abuse: Encouraged cessation, inpatient consultation per RT, NR if desired. #8.? Recent COVID-19 acute viral syndrome: Patient with history of COVID illness approximate 1 month prior to current presentation treated with Paxlovid, does note still occasional cough but no continued issues otherwise. #9.? DVT prophylaxis: SCDs, hold chemoprophylaxis given planned OR. #10.? CODE status: Patient HCPOA is her who is present and her and son as secondary and living will is currently in place. Discussed CODE status at length including difference between FULL code, DNR-CCA and DNR-CC status. Following discussions about the differences in these status, requested Full Code. Charges/Coding Visit Charges Inpatient E&M: 99200 Subs Hosp L2
[2022-08-22] MEDS: Cefazolin 2 GM in 0.9% Normal Saline 100 ML IV (07:44)
[2022-08-22] MEDS: TXA in NS 100ml (Placed in Wound) OPERA.SITE (08:26)
--- NOTE | 2022-08-22 08:42 | PCM.OPRPT ---
Problems Associated Problem List Diagnoses (1) Fracture of hip, left, closed: Report of Operation Date of Procedure: 08/22/22 Pre-Operative Diagnosis: left valgus impacted femoral neck fracture Post-Operative Diagnosis: same Surgery/Procedure Performed:: left hip open reduction internal fixation (cannulated screws) Surgeon: Nishant Vieira Type of Anesthesia: General and Local Anesthesiologist: Audrey Palm Special Medications: 10cc 1% lidocaine Estimated Blood Loss (mL): 20 Description of Procedure: Patient to the operating room theater. Placed supine traction fracture table left leg in the traction set up only slightly internally rotated no traction applied. Right leg attached to the bed peroneal nerve appropriately padded. Scissoring position. All bony prominences padded. SCD on the nonoperative leg. General anesthesia induced. 2 g IV Ancef administered prior to start of the procedure. AP lateral radiographs taken prior to start of the procedure confirm nondisplaced nature of the fracture. Left lower extremity prepped and draped in the usual sterile fashion with chlorhexidine-based prep solution allowing over 3 minutes drying time prior to draping using the [place] with a shower curtain style drape. Preoperative timeout performed to confirm the site patient and the surgery. Began by using percutaneous technique and inserting the partially-threaded 3.2 mm guidewire in an inverted triangle fashion. Inferior screw along the inferior calcar and 2 superior screws in a parallel fashion just superior to that. This captured the good bone at the inferior and posterior aspect of the femoral neck. Advanced these to the subchondral bone on AP and lateral radiograph ensuring no penetration. Overdrilled the near cortex. Measured these to be 85 inferiorly and 80 anterosuperiorly and 75 posterolateral superiorly. Advanced the 7.3 mm partially-threaded short threads screws over the guidewires to an appropriate depth using a washer on each screw as well. Good purchase of these. Backed away the cannulated guidewires. Did the near far technique. No screw penetration screw position was appropriate. Took final radiographs AP and lateral saved these onto the system. Case terminated. Wound thoroughly irrigated. 1 g of tranexamic acid used to irrigate the wound in 100 cc of saline. 10 cc 1% lidocaine instilled in and around the soft tissues. Skin closed with 3-0 Monocryl sutures cleaned with wet and dry dressing followed application of Steri-Strips Adaptic gauze and Tegaderm. Drapes removed patient woken up from the anesthetic taken on the fracture table set up transferred off the operating room table and taken to postanesthetic care unit in stable condition. All sponge needle instrument counts were correct no complications. Plan for the patient partial weightbearing readmitted under the hospitalist service Xarelto p.o. 10 mg once a day starting postoperative day 1 for VTE prophylaxis for 30 days. I called the patient's after surgery as well as before the case. Complications none Admit VTE Documentation VTE Present on Admission: No VTE Mechan Device Prophylaxis: SCD's VTE Pharm Prophylaxis ordered?: Yes Procedures Musculoskeletal [id number]: Other Procedure See Report
[2022-08-22] MEDS: Senna/Docusate Sodium 1 Tablet 2 TABLET PO ×2 (11:12→21:43)
[2022-08-22] MEDS: Famotidine 20 MG Tablet PO ×2 (11:12→21:43)
[2022-08-22] MEDS: Escitalopram Oxalate 10 MG Tablet 15 MG PO (11:12)
[2022-08-22] MEDS: oxyCODONE 5 MG Tablet PO (15:25)
[2022-08-22 19:42] LABS: Bacteria 0 SEEN /hpf (None Seen); Mucous, Urine 0 SEEN /hpf (<or=2+); Red Blood Cells-Urine 0 SEEN /hpf (0-5); Squamous Epithelial Cells - UA 0 SEEN /hpf (5-10); White Blood Cells 0 SEEN /hpf (0-5)
[2022-08-22 19:44] LABS: Color, Urine Yellow (Yellow); Glucose, Dipstick Normal (Normal); Ketone-Dipstick Negative (Negative); Leukocyte Esterase-Dipstick Negative /ul (Negative); Nitrite-Dipstick Negative (Negative); Occult Blood-Urine Negative /ul (Negative); Protein-Dipstick Negative (Negative); Urine Bilirubin Dipstick Negative (Negative); Urine Clarity Clear (Clear); Urine Urobilinogen Normal (Normal)
[2022-08-23 04:00] VITALS: BP 126/63; PULSE 77; RESP 18; TEMP 36.9; O2SAT 93
[2022-08-23 04:40] VITALS: PULSE 81; RESP 18; O2SAT 86
[2022-08-23 04:41] VITALS: O2SAT 88
[2022-08-23 04:42] VITALS: O2SAT 94
[2022-08-23 05:08] LABS: Absolute Lymphocyte Count 1.38 X10^3/uL (0.83-4.51); Absolute Neutrophil Count 6.1 X10^3/uL (2.0-7.7); Basophil# 0.03 X10^3/uL; Basophil% 0.4 % (0-1); Eosinophil# 0.05 X10^3/uL; Eosinophils% 0.6 % (0-5); Hematocrit 32.8 % (37-47); Lymphocyte # 1.38 X10^3/ul (0.83-4.51); Lymphocyte % 16.9 % (19-41); Mean Corp Hgb Conc 33.5 g/dL (32-36); Mean Corpuscular Hgb 35.7 pg (27.0-32.0); Mean Corpuscular Volume 106.5 fL (81-99); Mean Platelet Vol. 9.5 fl (6.2-12.0); Monocyte# 0.58 X10^3/uL; Monocyte% 7.1 % (0-10); NRBC Flagged by Analyzer 0 % (0-5); Neutrophil # 6.09 X10^3/uL (2.7-7.7); Neutrophil % 74.5 % (47-70); Platelet Count 176 K/mm3 (150-450); RBC Distribution Width CV 13.6 % (11.6-14.6); RBC Distribution Width SD 53.1 fl (35.1-43.9); Red Blood Count 3.08 M/mm3 (4.2-5.4); White Blood Count 8.2 K/mm3 (4.4-11.0)
[2022-08-23 05:37] LABS: Anion Gap 5 (5-15); BUN 12 mg/dL (7-18); BUN/Creat Ratio 20.3 RATIO (10-20); Calcium,Total 8.1 mg/dL (8.5-10.1); Chloride 107 mmol/L (98-107); Creatinine, Serum 0.59 mg/dL (0.55-1.02); EST Glomerular Filtration Rate 107 mL/min (>60); Est Glom Filt Rate - Afr Amer 130 mL/min (>60); Estimated Creatinine Clearance 43.92 ml/min; Glucose 109 mg/dL (74-106); Potassium 3.9 mmol/L (3.5-5.1); Sodium Level 136 mmol/L (136-145)
[2022-08-23 06:00] VITALS: BMI 26.2
[2022-08-23 07:14] VITALS: O2SAT 93
[2022-08-23 08:08] VITALS: BP 128/76; PULSE 77; RESP 18; TEMP 36.7; O2SAT 94
[2022-08-23] MEDS: Calcium Carb/Vitamin D 1 TABLET Tablet PO (08:24)
[2022-08-23] MEDS: Vitamin B Comp W-C Capsule 1 CAP PO (08:24)
[2022-08-23] MEDS: Multivitamins,Therapeutic Tablet 1 TABLET PO (08:24)
[2022-08-23] MEDS: Famotidine 20 MG Tablet PO (09:33)
[2022-08-23] MEDS: Escitalopram Oxalate 10 MG Tablet 15 MG PO (09:34)
[2022-08-23] MEDS: Senna/Docusate Sodium 1 Tablet 2 TABLET PO (09:34)
--- NOTE | 2022-08-23 10:02 | DCINST_ITS ---
Discharge Instructions Diet Discharge Diet: No restrictions Activity Discharge Activity: Return to Normal Activity Weight Bearing Status: Weight bearing as tolerated Dressing / Incision Call your doctor if you observe: Fever of 101 or Higher, Coldness, Increased Pain, Numbness or Tingling, Change in Color, Inability to urinate, Inability to have a bowel movement, Using more than 1 pad per hour, Shortness of breath, Dizziness, Fainting spells, Swelling in the ankles, Chest pain, Prolonged hiccupping, Increased palpitations (irregular heartbeat) and Calf discomfort Follow Up Care When: IN 2 WEEKS Test Results: Test results from this visit will be discussed in further detail at your follow- up appointment, if applicable. Discharge Plan Admission Admit Date/Time: 08/21/22 20:04 Primary Reason for Your Visit: Left hip fracture Attending Provider: Faustino Mart Primary Care Provider: Alirio Abbott Consulting Providers: Nishant Vieira ; Taylor Pandey Discharge Orders/Prescriptions Prescriptions: New oxycodone 5 mg Tablet 2.5 - 5 mg PO Q4H PRN PRN (Reason: Pain Score 4-10) 3 Days Qty: 10 0RF Rx Instructions: Take 2.5 mg for 4-6/10 intensity pain and 5 mg for 7-10/10 intensity pain. sennosides-docusate sodium [Stool Softener-Stimulant Laxat] 8.6-50 mg Tablet 2 tab PO BID Qty: 0 0RF Rx Instructions: OTC Xarelto 10 mg Tablet 10 mg PO DINNER 30 Days Qty: 30 0RF acetaminophen 325 mg Tablet 1,000 mg PO Q8H Qty: 0 0RF Rx Instructions: Take 2 tablets scheduled every 8 hourly FOR 5 MORE DAYS THEN NEEDED for diwj-hr-panyjlyd pain. 500 mg tablets available [id number]. Continued vitamin B complex [B Complex-Vitamin B12] Tablet 1 tab PO DAILY multivitamin Tablet 1 tab PO DAILY methotrexate sodium 2.5 MG tablet 20 mg PO TH leucovorin calcium 5 MG tablet 10 mg PO FR escitalopram oxalate 10 MG tablet 10 mg PO QHS biotin 1,000 MCG tablet,chewable 1,000 mcg PO BID Calcium Carb/Vitamin D tablet 1 tab PO QDAY rituximab-hyaluronidase,human 1,400 MG/11.7 ML solution 1,400 mg SQ .COMPLEX Rx Instructions: 2x yearly infusion cholecalciferol (vitamin D3) [Vitamin D3] 50 mcg (2,000 unit) Tablet 50 mcg PO DAILY esomeprazole magnesium [Nexium] 20 mg Capsule,Delayed Release(Dr/Ec) 20 mg PO DAILY Referrals / Follow Up: Alirio Abbott MD [Primary Care Provider] - Nishant Vieira MD [Med Staff - Active Staff] - Within 2 Weeks (For left hip fracture.) Disposition Disposition (needs filled in before D/C Order can be placed): Home Health Service
--- NOTE | 2022-08-23 10:16 | PCM.DC.SUM ---
Providers Date of Admission: 08/21/22 Date of Discharge: 08/23/22 Primary Care Physician: Dr. Alirio Abbott MD Consultations 08/21/22 20:33 Consult: Orthopedics Routine Consulting Provider: Nishant Vieira Reason for Consult: Fall, L hip fracture EMERGENT Consult: No MD Notified: Yes Date Notified: 08/21/22 Time Notified: 20:07 Method of Notification: Verbal Reason For Visit: FALL, L HIP FRACTURE Diagnosis Discharge Diagnosis (1) Fracture of hip, left, closed: Status: Acute Code(s): S72.002A - Fracture of unspecified part of neck of left femur, initial encounter for closed fracture Plan 71-year-old female was brought to ED by EMS after fall; lying on her back on the floor. She tripped over a bar that stopped the carts. Complaining of severe left hip and knee pain and also right ankle pain. Denies neck or back pain or loss of consciousness. 1.? Acute debility due to nondisplaced valgus impacted, subcapital left femoral neck fracture with minimal osteoarthritis most likely pathological with history of rheumatoid arthritis: She fell down from standing height after tripping over. Patient is being admitted on [facility] floor. Patient had CT left lower extremity consistent with diagnosis. Patient seen by orthopedic surgeon Dr. Vieira. Vitals in normal range and twelve-lead EKG unremarkable. Gentle IV fluid, fluid intake and output pain control, PT and OT. OR in the morning today. Patient on Xarelto 10 mg daily from tomorrow evening for 30 days. 08/23: Discussed with PT and the patient. Patient reasonably doing well on the first day postop, walked to the door of the room and back. Does not have Barker catheter, spontaneously voiding urine. Discussed the pain regimen, Tylenol 1000 mg every 8 hourly for total of 1 week and then as needed. Prescription for oxycodone, 5 mg total 10 tablets and Xarelto 10 mg daily for 30 days for DVT prophylaxis given. OARRS reviewed. Patient had 7 prescriptions of Percocet gabapentin and and hydrocodone in last 2 years. NARx score 140. Overdose risk score 240. Advised follow-up with PCP in 1 week. Continue incentive spirometry and Pep for 1 week. Discharged home with home health care. #2.? Rheumatoid arthritis: Patient with outpatient rituximab injections noted although last reported 04/05/2020, also reported prior methotrexate and folic acid, encourage continued outpatient rheumatology evaluation and follow-up.? Allan's methotrexate appears to be dosed on . Follow-up with me supervisor grips. Home medications continued #3.? Chronic macrocytic anemia: Admission hemoglobin 13, MCV 104.3, baseline hemoglobin 11-12. Hemoglobin in the morning 12.3/37%. #4.? History [place] Lymphoma: Noted to be in remission following with Dr. 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 #5.? Anxiety and depression/ADD: continue patient home escitalopram regimen. #6.? History microscopic colitis: Patient follows Dr. Andrea. #7.? Tobacco Abuse: Encouraged cessation, inpatient consultation per RT, NR if desired. #8.? Recent COVID-19 acute viral syndrome: Patient with history of COVID illness approximate 1 month prior to current presentation treated with Paxlovid, does note still occasional cough but no continued issues otherwise. #9.? DVT prophylaxis: SCDs, hold chemoprophylaxis given planned OR. #10.? CODE status: Patient HCPOA is her who is present and her and son as secondary and living will is currently in place. Discussed CODE status at length including difference between FULL code, DNR-CCA and DNR-CC status. Following discussions about the differences in these status, requested Full Code. Discharge medication reconciliation done. Discharge follow-up instructions completed. Discharge process discussed with the patient and all questions were answered to patient's satisfaction. Total time spent, exact 35 minutes on discharge meds reconciliation, examination, coordination of care with nurses and ancillary staff, review of imaging and blood test and discussion with the patient on follow-up instructions. Medications at Discharge Home Medications methotrexate sodium 2.5 mg tablet 20 mg PO TH RA 11/22/13 biotin 1,000 mcg chewable tablet 1,000 mcg PO BID supplement 07/28/16 escitalopram oxalate 10 mg tablet 10 mg PO QHS mood 07/28/16 leucovorin calcium 5 mg tablet 10 mg PO FR RA 07/28/16 rituximab 1,400 mg/11.7 mL (120 mg/mL)-hyaluronidase subcutaneous soln 1,400 mg SQ .COMPLEX RA 04/05/20 multivitamin 1 tab PO DAILY supplement 01/08/21 vitamin B complex (B Complex-Vitamin B12 tablet) 1 tab PO DAILY supplement 01/08/21 Calcium Carb/Vitamin D 1 tab PO QDAY supplement 06/24/21 cholecalciferol (vitamin D3) 50 mcg (2,000 unit) tablet (Vitamin D3) 50 mcg PO DAILY vitamin 08/21/22 esomeprazole magnesium 20 mg capsule,delayed release (Nexium) 20 mg PO DAILY reflux 08/21/22 acetaminophen 325 mg tablet 1,000 mg PO Q8H #0 tabs 08/23/22 oxycodone 5 mg tablet 2.5 - 5 mg PO Q4H PRN PRN Pain Score 4-10 3 days #10 tabs 08/23/22 rivaroxaban 10 mg tablet (Xarelto) 10 mg PO DINNER 30 days #30 tabs 08/23/22 sennosides 8.6 mg-docusate sodium 50 mg tablet (Stool Softener-Stimulant Laxative) 2 tab PO BID #0 tabs 08/23/22 Physical Exam Narrative Seen and examined. Patient does not have Barker catheter. She is chronically urinary incontinent. No chest pain or shortness of breath. Mild tachycardia after physical therapy. Physical exam General: Alert, Oriented x3, Cooperative HEENT: Atraumatic, PERRLA, EOMI, Normocephalic Oral: Oral mucosa moist. No Gingival or Mucosal Lesions/ Ulcerations Neck: Supple, No JVD, Negative Carotid Bruits Lungs: Air entry diminished in bilateral lung bases. No crepitation/rhonchi Cardiovascular: Regular rate, Regular Rhythm, Normal S1, Normal S2, grade 2/6 systolic murmur over right second ICS LSB. Abdomen: Bowel Sounds Present, Soft, Non Tender, Non-Distended : No renal angle tenderness. No suprapubic tenderness. Extremities: No edema, Capillary Refill Less than 3 Seconds Skin: No rashes, No breakdown Musculoskeletal: Left femoral perioperative region dry. No blood staining or hematoma. No tenderness over perioperative region. No Tenderness to Palpation of other joints or Extremities Neurological: Cranial nerves II-XII grossly intact, DTR 2+/4 and Symmetrical, Neuro grossly intact Psych/Mental Status: Flat affect. Weight / BMI Weight Weight: 147 lb 14.883 oz Body Mass Index (BMI) 26.2 ABG / Lab / Microbiology Data Result Diagrams: 08/23/22 04:55 08/23/22 04:55 Laboratory: Laboratory Results - last 24 hr 08/22/22 06:40: Urine Color Yellow, Urine Clarity Clear, Urine pH 7.0, Ur Specific [place] 1.010, Urine Protein Negative, Urine Glucose (UA) Normal, Urine Ketones Negative, Urine Occult Blood Negative, Urine Nitrite Negative, Urine Bilirubin Negative, Urine Urobilinogen Normal, Ur Leukocyte Esterase Negative, Urine RBC 0 SEEN, Urine WBC 0 SEEN, Ur Squamous Epith Cells 0 SEEN, Urine Bacteria 0 SEEN, Urine Mucus 0 SEEN 08/23/22 04:55: WBC 8.2, RBC 3.08 L, Hgb 11.0 L, Hct 32.8 L, MCV 106.5 H, MCH 35.7 H, MCHC 33.5, RDW Std Deviation 53.1 H, RDW Coeff of Tristan 13.6, Plt Count 176, MPV 9.5, Immature Gran % (Auto) 0.500, Neut % (Auto) 74.5 H, Lymph % (Auto) 16.9 L, [place] % (Auto) 7.1, Eos % (Auto) 0.6, Baso % (Auto) 0.4, Absolute Neuts (auto) 6.1, Absolute Lymphs (auto) 1.38, Nucleated RBC % 0 08/23/22 04:55: Sodium 136, Potassium 3.9, Chloride 107, Carbon Dioxide 24.0, Anion Gap 5, BUN 12, Creatinine 0.59, Estim Creat Clear Calc 43.92, Est GFR (MDRD) Af Amer 130, Est GFR (MDRD) Non-Af 107, BUN/Creatinine Ratio 20.3 H, Glucose 109 H, Calcium 8.1 L Microbiology: Microbiology 08/22/22 06:40 Urine Catheter - Catheter Urine Culture - Preliminary Culture exhibits no growth. D/C Instructions Discharge Diet: No restrictions Weight Bearing Status: Weight bearing as tolerated Call your doctor if you observe: Fever of 101 or Higher, Coldness, Increased Pain, Numbness or Tingling, Change in Color, Inability to urinate, Inability to have a bowel movement, Using more than 1 pad per hour, Shortness of breath, Dizziness, Fainting spells, Swelling in the ankles, Chest pain, Prolonged hiccupping, Increased palpitations (irregular heartbeat) and Calf discomfort When: IN 2 WEEKS Meaningful Use Info Meaningful Use Diagnoses (Choose all that apply): None applicable Discharge Plan Admission Admit Date/Time: 08/21/22 20:04 Primary Reason for Your Visit: Left hip fracture Attending Provider: Faustino Mart Primary Care Provider: Alirio Abbott Consulting Providers: Nishant Vieira ; Taylor Pandey Discharge Orders/Prescriptions Prescriptions: New oxycodone 5 mg Tablet 2.5 - 5 mg PO Q4H PRN PRN (Reason: Pain Score 4-10) 3 Days Qty: 10 0RF Rx Instructions: Take 2.5 mg for 4-6/10 intensity pain and 5 mg for 7-10/10 intensity pain. sennosides-docusate sodium [Stool Softener-Stimulant Laxat] 8.6-50 mg Tablet 2 tab PO BID Qty: 0 0RF Rx Instructions: OTC Xarelto 10 mg Tablet 10 mg PO DINNER 30 Days Qty: 30 0RF acetaminophen 325 mg Tablet 1,000 mg PO Q8H Qty: 0 0RF Rx Instructions: Take 2 tablets scheduled every 8 hourly FOR 5 MORE DAYS THEN NEEDED for wzhl-nk-qruqrvmi pain. 500 mg tablets available [id number]. Continued vitamin B complex [B Complex-Vitamin B12] Tablet 1 tab PO DAILY multivitamin Tablet 1 tab PO DAILY methotrexate sodium 2.5 MG tablet 20 mg PO TH leucovorin calcium 5 MG tablet 10 mg PO FR escitalopram oxalate 10 MG tablet 10 mg PO QHS biotin 1,000 MCG tablet,chewable 1,000 mcg PO BID Calcium Carb/Vitamin D tablet 1 tab PO QDAY rituximab-hyaluronidase,human 1,400 MG/11.7 ML solution 1,400 mg SQ .COMPLEX Rx Instructions: 2x yearly infusion cholecalciferol (vitamin D3) [Vitamin D3] 50 mcg (2,000 unit) Tablet 50 mcg PO DAILY esomeprazole magnesium [Nexium] 20 mg Capsule,Delayed Release(Dr/Ec) 20 mg PO DAILY Referrals / Follow Up: Alirio Abbott MD [Primary Care Provider] - Nishant Vieira MD [Med Staff - Active Staff] - Within 2 Weeks (For left hip fracture.) Disposition Disposition (needs filled in before D/C Order can be placed): Home Health Service Charges/Coding Visit Charges Inpatient E&M: 07150 Disch Hosp >30min
--- NOTE | 2022-08-23 10:40 | CASEMGMT ---
Addendum entered by Gabbi Fontaine 08/23/22 14:04: Pt aware that [facility] will accept her for care. Pt also states that she checked [facility] and will move forward with the rx from [facility]. Pt denies any issues with the cost of this. Pt denies any further needs. Addendum entered by Gabbi Fontaine 08/23/22 12:12: TC to Bela aydee to obtain PCN number for hospital dc offer for shaan. TC back to [facility] and tried card again with this number and was told the offer could not be applied as the group has terminated. Original Note: CLAUDIA FLORES Assessment: Face to Face with pt for initial transition planning/care coordination assessment. CLAUDIA FLORES introduced self and role at [facility], pt voices understanding and consents to assessment. Pt is A/O x4 and answers all questions appropriately at this time. Pt sitting up in chair in no distress. Care providers, pharmacy, and demographics verified/updated. Admitting Dx: Fall, L hip fx PCP:cSar Specialists: Friend, GI; Funmilayo, onc; carlo Gonzáles Preferred Pharmacy: [facility] Insurance: [facility], [employer] Prescription Benefit: yes, Pt states she does but uses [facility] instead. She is aware that this RN MARK called [facility] and her cost for the Eliquis is $542.30 with $530 going towards deductible. [facility] is comparable. TC to [facility] and tried to apply a Hospital DC offer that was declined. LNOK: Alexei Isbell, Living Arrangements: Pt lives with in a single story home with 4 steps to enter with a rail. Pt reports she was I in ADL's prior to fall. She states her can assist her minimally but that she needs to be home to take care of him. Pt denies concerns at home. Transportation: Pt drives self and denies concerns with transportation. Pt or friends are able to transport until she can drive again. DME/HHC/SNF: Pt has a BSC, transport w/c, shower chair, transfer shower chair, cane, FWW, over the toilet grab bars. Pt has had [facility] in the past and denies SNF stays. Pt states no concerns with going home at time of dc. Patient was provided a list of HHC providers including quality and resource use data and consistent with the patient?s preferred geographic region, medical needs, and insurance network were provided from the [employer] Guide. Pt chose [facility]. Referral sent to [facility] via [facility] at this time. Pt states no further concerns/needs. CM to follow. Advised pt to ask CM if any further question/concerns/needs arise, voices understanding. Pt Goal: Home with HHC Plan: Home with [facility]
--- NOTE | 2022-08-23 12:39 | PHA.DC.MC ---
Pharmacy Service has performed discharge medication reconciliation and counseling for this patient. 1. ACETAMINOPHEN 1000MG PO Q8 FOR 5 DAYS, THEN PRN PAIN 2. OXYCODONE 2.5-5MG PO Q4H PRN PAIN 3. SENNA/DOCUSATE 2T PO BID 4. RIVAROXABAN 10MG PO DINNER FOR 30 DAYS The patient's discharge medication list was reviewed for discrepancies and discrepancies were resolved. Home Medications methotrexate sodium 2.5 mg tablet 20 mg PO TH RA 11/22/13 biotin 1,000 mcg chewable tablet 1,000 mcg PO BID supplement 07/28/16 escitalopram oxalate 10 mg tablet 10 mg PO QHS mood 07/28/16 leucovorin calcium 5 mg tablet 10 mg PO FR RA 07/28/16 rituximab 1,400 mg/11.7 mL (120 mg/mL)-hyaluronidase subcutaneous soln 1,400 mg SQ .COMPLEX RA 04/05/20 multivitamin 1 tab PO DAILY supplement 01/08/21 vitamin B complex (B Complex-Vitamin B12 tablet) 1 tab PO DAILY supplement 01/08/21 Calcium Carb/Vitamin D 1 tab PO QDAY supplement 06/24/21 cholecalciferol (vitamin D3) 50 mcg (2,000 unit) tablet (Vitamin D3) 50 mcg PO DAILY vitamin 08/21/22 esomeprazole magnesium 20 mg capsule,delayed release (Nexium) 20 mg PO DAILY reflux 08/21/22 acetaminophen 325 mg tablet 1,000 mg PO Q8H #0 tabs 08/23/22 oxycodone 5 mg tablet 2.5 - 5 mg PO Q4H PRN PRN Pain Score 4-10 3 days #10 tabs 08/23/22 rivaroxaban 10 mg tablet (Xarelto) 10 mg PO DINNER 30 days #30 tabs 08/23/22 sennosides 8.6 mg-docusate sodium 50 mg tablet (Stool Softener-Stimulant Laxative) 2 tab PO BID #0 tabs 08/23/22 The patient was counseled on the following discharge medications and changes in medications for homegoing were reviewed. The Reason for Use, instructions for use, and potential side effects were reviewed for all new medications. The patient's questions regarding all of their medications were answered. The patient was able to verbally demonstrate an understanding of their discharge medications.
--- NOTE | 2022-08-23 13:43 | CASEMGMT ---
Discharge Planning Spoke with [facility] and they are able to accept patient. Tatyana Bryan
--- NOTE | 2022-08-24 08:25 | PCM.PN.ORT ---
Subjective Subjective Patient seen postoperative day 1 on August 23, 2022. Patient is doing very well eager to return home. No hip or groin pain. Objective Data Objective Data Patient awake and alert. No pain with range of motion of the hip testing with logroll. Dressings clean and dry and intact. Normal sensation motor function of the foot foot is warm and well-perfused good pedal pulses able to wiggle the toes dorsiflex and plantarflex the foot. Vital Signs: Vital Signs Temp Pulse Resp BP Pulse Ox O2 Del Method O2 Flow Rate 98.0 F 77 18 128/76 H 94 Nasal Cannula 2 08/23/22 08:08 08/23/22 08:08 08/23/22 08:08 08/23/22 08:08 08/23/22 08:08 08/23/22 08:08 08/23/22 08:08 Oxygen Flow Rate (L/min) 2 Oxygen Delivery Method Nasal Cannula Weight: 147 lb 14.883 oz Body Mass Index (BMI) 26.2 Intake & Output: Intake and Output for Last 24 Hours 08/22/22 08/23/22 08/24/22 23:59 23:59 23:59 Intake Total 3723.33 / 3723.33 Output Total 925 / 925 Balance 2798.33 / 2798.33 Lab / Micro Data Result Diagrams: 08/23/22 04:55 08/23/22 04:55 Micro: Microbiology 08/22/22 06:40 Urine Catheter - Catheter Urine Culture - Preliminary Culture exhibits no growth. Assessment & Plan Assessment/Plan (1) Fracture of hip, left, closed: PLAN: 71-year-old female postoperative day 1 doing well 50% partial weightbearing left lower extremity follow-up in the office within ideally under 2 weeks. Okay to shower over top of the dressing but keep this clean and dry change in 4 to 5 days which I am happy to do in the office. Xarelto 10 mg p.o. once daily postoperative for VTE prophylaxis for 30 days. Patient understands no further questions or concerns.
== END 2022-08-23 17:18 | disposition home health service (06) | DRG 482 ==
LOC: ED 19:51 → MS3 20:28
PROVIDERS: Orthopaedic Surgery Sports Medicine; Admitting Provider Family Medicine; Emergency Provider Emergency Medicine; PCP Family Medicine; Visit Provider Internal Medicine
PROC: 0SSB04Z Reposition Left Hip Joint with Internal Fixation Device, Open Approach (ICD-10-PCS; principal; 2022-08-22 07:30)
DX: M84.652A Pathological fracture in other disease, left femur, initial encounter for fracture (principal); M06.9 Rheumatoid arthritis, unspecified; W18.09XA Striking against other object with subsequent fall, initial encounter; Y92.512 Supermarket, store or market as the place of occurrence of the external cause; F32.A Depression, unspecified; F41.9 Anxiety disorder, unspecified; F17.210 Nicotine dependence, cigarettes, uncomplicated; Z79.01 Long term (current) use of anticoagulants; Z79.899 Other long term (current) drug therapy; Z86.16 Personal history of COVID-19; Z96.641 Presence of right artificial hip joint
CPT/HCPCS: 36415; 71045; 73501; 73502; 73564; 73610; 73700; 76000; 80048; 80053; 81001; 85025; 86850; 86900; 86901; 87086; 93005; 94668; 97162; 97166; 99252; 99285; 99406; C1713; J7030; A4216; G0463; J2405

== ENCOUNTER 2022-10-27 15:00 | Outpatient (RCR) | payer MEDICARE, OTHER, SELFPAY ==
--- NOTE | 2022-09-29 17:59 | HP.PTEVAL ---
Patient's Visit Information DUANE MIRANDA is a 71 year old F referred to Physical Therapy by Dr. Nishant Vieira MD with a diagnosis of L femur Fx. Date of Evaluation: 09/29/22 Physical Therapist: RAMO Alfonso - Visit Plan Frequency: 2x /Week Duration: 2 Months Plan: Trial of going up and down the stairs with handrail on the R hand side to be able to use her steps at home. 2X/ week for 8 weeks for L hip and knee strength, gait training, functional activities such as sit to stand and stairs, ROM, progressive weightbearing as feels she is able. HEP: standing heel and toe raises and bridges - Subjective Pt tripped at the pet store and was taken by the squad and they did an x-ray and L femur Fx and had surgery with 3 pins. She fell on 08-23-22. She had a R THR. She has L hip pain in sitting. She has some catching with her L hip. She is walking with a walker with PWB (her estimate is 75% WB). Stairs: she has not done many steps. She does have basement steps and is fearful of basement steps. She is sleeping ok on her back. It hurts to lay on her R side even with a pillow between her knees. - Pain L hip pain Pain Intensity (Out of 10): 2 Pain Intensity Range: 1 Comment: with walking - Objective Gait: Walks with a rolling walker with decreased stride length and slightly decreased stance time on the L LE. Pt able to walk approx 120 feet and could do more with a straight cane with CGA. R hip PROM: to approx 100 degree hip flex. LE MMT: R hip flex 10.5 and L 6.2. R knee ext 14.1 and 11.3. R knee flex 9.1 and L 9.1. R hip abd in supine R 7.5 and L 4.2. Able to do 1/2 normal ROM bridge. Able to heel and toe raise. Sit to stand: not able to get out of the chair without using her arms - Balance/Special Test Scores Lower Extremity Functional Score: 21 - Goals Goal 1:: I HEP Goal Time Frame: 4-6 Weeks Goal 2:: Increase LE strength (at time of the eval:R hip flex 10.5 and L 6.2. R knee ext 14.1 and 11.3. R knee flex 9.1 and L 9.1. R hip abd in supine R 7.5 and L 4.2. Able to do 1/2 normal ROM bridge) Goal Time Frame: 4-6 Weeks Goal 3:: Be able to walk with normal gait pattern with least restrictive device Goal Time Frame: 4-6 Weeks Goal 4:: Be able to go up and down the stairs recip with 1 hand rail Goal Time Frame: 4-6 Weeks - Rehabilitation Potential Rehabilitation Potential: Excellent - Anticipated Interventions Patient/Client Instruction: Educate patient on: Condition, Plan of Care For the Purpose of:: To decrease pain, To increase ROM, To improve nutrient delivery to tissue, To improve muscle performance and motor function, To improve ability to perform ADL's, To increase tolerance to activity/condition/position, To improve performance and independence with ADL's, To decrease level of supervision to perform tasks, To improve ability of physical actions for home/community/work/leisure, To improve gait and locomotor functions, To improve health of tissue, To decrease soft tissue restriction, To improve safety with gait Therapeutic Exercise to Include: Strength training, Gait and locomotor training, Active ROM For the Purpose of:: To decrease pain, To increase ROM, To improve nutrient delivery to tissue, To improve muscle performance and motor function, To improve ability to perform ADL's, To increase tolerance to activity/condition/position, To improve performance and independence with ADL's, To decrease level of supervision to perform tasks, To improve ability of physical actions for home/community/work/leisure, To improve gait and locomotor functions, To decrease soft tissue restriction, To increase flexibility/ROM, To improve endurance, To improve safety with gait Functional Training to Include: Gait training For the Purpose of:: To improve gait and locomotor functions Thank you for the opportunity to evaluate your patient. For Medicare and Medicare HMO plans, please review the plan of care and approve it. It will need to be FAXED BACK to us at [phone] for Medicare purposes. For Medicare only, by signing this I certify the plan of care. Please let me know if there are questions or concerns regarding this plan of care. Physician Signature: Date:
--- NOTE | 2022-10-27 15:51 | HP.PTDCSUM ---
Discharge Summary D/C summary: It has been my pleasure to treat DUANE MIRANDA referred by Dr. Nishant Vieira MD, with the diagnosis of L femur Fx for a total of 9 visit(s). Discharge Date: 10/27/22 Please see the following information for a summary of their discharge status. Subjective Subjective: She is still having pain with walking 2/10 pain. She is still using the cane most of the time in the house and always when she goes out. Her L knee is also giving her trouble. She feels that L leg is still weak. She feels that she can do most of the exercises at home. She is using ankle weights and does bridges. She is trying to do steps and she is not strong enough to get up the steps. She feels the weakness is in the knee. Pain L hip pain: Pain Intensity (Out of 10): 2 Overall Improvement % Improvement: 60 Objective Objective/Function: R hip flex 14.5 and L 9.8 R knee ext 15.3 and 15.3 R knee flex 10.1 and L 11.3 R hip abd in supine R 9.1 and L 9.5 Able to do full ROM bridge Stairs: up and down stairs recip with no handrail but weakness ascending the steps on the L Gait: Walks with decrease stride length, decrease hip flexion with a straight cane with decrease stance time on the L LE Goals Goal 1:: I HEP Goal Progress: Goal Met Goal 2:: Increase LE strength (at time of the eval:R hip flex 10.5 and L 6.2 R knee ext 14.1 and 11.3 R knee flex 9.1 and L 9.1 R hip abd in supine R 7.5 and L 4.2 Able to do 1/2 normal ROM bridge) Goal Progress: Goal Met Goal 3:: Be able to walk with normal gait pattern with least restrictive device Goal Progress: Progressing Goal 4:: Be able to go up and down the stairs recip with 1 hand rail Goal Progress: Goal Met Plan Plan: Pt to do HEP per request and she will also start some leg press, hip abd/add and bike machines to see if she can continue to increase her strength. D/C Information Discharge Comments: DC PT to HEP d/c sentence: If there are questions or concerns regarding this patient's physical therapy, please feel free to call me at [phone]. Thank you for the referral of this patient. Sincerely, Kathya Castañeda, RAMO Balance/Gait/Functional tests Balance/Special Test Scores Lower Extremity Functional Score: 32
== END 2022-10-27 19:00 | disposition home or self-care (01) ==
LOC: PT 15:00
PROVIDERS: PCP Family Medicine; Referring Provider Orthopaedic Surgery Sports Medicine; Visit Provider Orthopaedic Surgery Sports Medicine
DX: S72.002D Fracture of unspecified part of neck of left femur, subsequent encounter for closed fracture with routine healing (principal)
CPT/HCPCS: 97110; 97161; 97530

== ENCOUNTER → 2022-11-26 | Outpatient (CLI) | payer MEDICARE, OTHER, SELFPAY | END | disposition home or self-care (01) | LOC: LABSPEC 15:26 | PROVIDERS: PCP Family Medicine; Referring Provider Family Medicine; Visit Provider Family Medicine | DX: N39.0 Urinary tract infection, site not specified (principal) | CPT/HCPCS: 87077; 87086; 87088; 87186 ==

== ENCOUNTER → 2023-01-05 | Outpatient (CLI) | payer MEDICARE, OTHER, SELFPAY ==
--- NOTE | 2023-01-05 13:16 | NEURO_ITS ---
NCS and/or EMG Patient Report Ordering Doctor: Nishant Vieira DATE OF SERVICE: 01/05/23 Ladan presents for electrodiagnostic testing of the left lower limb. She has left lateral leg pain. Electrodiagnostic Findings: Testing was performed in the left lower limb. Left peroneal motor nerve demonstrates normal distal latency, amplitude and conduction velocity. Normal left tibial motor response. Normal left superficial peroneal response. Borderline prolonged left sural latency. Normal peroneal and tibial F-waves. H-reflex borderline prolonged bilaterally. Needle EMG testing was performed the left lower limb. All muscles tested, including the left lumbar paraspinals, showed no evidence of denervation with normal motor unit action potentials. Electrodiagnostic assessment: This is a normal electrodiagnostic study of the left lower limb. There is no electrodiagnostic evidence for peripheral neurop athy or lumbosacral radiculopathy Multi Select Codes Neurology Neurology Interp Codes: 26509-08 Musc test done w/n test comp (interp) and 60788-08 Nrv cndj tst 5-6 studies (interp)
== END | disposition home or self-care (01) ==
LOC: PSN 11:37
PROVIDERS: PCP Family Medicine; Referring Provider Orthopaedic Surgery Sports Medicine; Visit Provider Orthopaedic Surgery Sports Medicine
DX: M54.16 Radiculopathy, lumbar region (principal)
CPT/HCPCS: 95886; 95909

== ENCOUNTER → 2023-01-13 | Outpatient (CLI) | payer MEDICARE, OTHER, SELFPAY ==
[2023-01-13 17:59] LABS: Absolute Lymphocyte Count 1.41 X10^3/uL (0.83-4.51); Absolute Neutrophil Count 4.7 X10^3/uL (2.0-7.7); Basophil# 0.05 X10^3/uL; Basophil% 0.7 % (0-1); Eosinophil# 0.09 X10^3/uL; Eosinophils% 1.3 % (0-5); Hematocrit 38.3 % (37-47); Hemoglobin 12.9 g/dL (12.0-15.0); Lymphocyte # 1.41 X10^3/ul (0.83-4.51); Lymphocyte % 20.8 % (19-41); Mean Corp Hgb Conc 33.7 g/dL (32-36); Mean Corpuscular Hgb 35.7 pg (27.0-32.0); Mean Corpuscular Volume 106.1 fL (81-99); Monocyte# 0.53 X10^3/uL; Monocyte% 7.8 % (0-10); NRBC Flagged by Analyzer 0 % (0-5); Neutrophil # 4.68 X10^3/uL (2.7-7.7); Neutrophil % 69.1 % (47-70); Platelet Count 240 K/mm3 (150-450); RBC Distribution Width CV 13.1 % (11.6-14.6); RBC Distribution Width SD 50.3 fl (35.1-43.9); Red Blood Count 3.61 M/mm3 (4.2-5.4); White Blood Count 6.8 K/mm3 (4.4-11.0)
[2023-01-13 18:25] LABS: Erythrocyte Sedimentation Rate 3 mm/hr (0-30)
[2023-01-13 18:46] LABS: ALB/GLOB Ratio 1.2 RATIO (0.9-2.4); AST(SGOT) 15 U/L (15-37); Alanine Aminotransfer ALT/SGPT 22 U/L (13-56); Alkaline Phosphatase 103 U/L (45-117); Anion Gap 6 (5-15); BUN 19 mg/dL (7-18); BUN/Creat Ratio 29.4 RATIO (10-20); CRP < 2.90 mg/L (0.0-3.0); Calcium,Total 9.4 mg/dL (8.5-10.1); Chloride 103 mmol/L (98-107); Creatinine, Serum 0.65 mg/dL (0.55-1.02); EST Glomerular Filtration Rate 96 mL/min (>60); Est Glom Filt Rate - Afr Amer 117 mL/min (>60); Globulin 3.2 g/dL (2.2-4.2); Glucose 83 mg/dL (74-106); Protein, Total 7.2 g/dL (6.4-8.2); Sodium Level 135 mmol/L (136-145)
== END | disposition home or self-care (01) ==
LOC: MTLAB 16:56
PROVIDERS: PCP Family Medicine; Visit Provider Family Medicine
DX: M25.552 Pain in left hip (principal)
CPT/HCPCS: 36415; 80053; 85025; 85652; 86140

== ENCOUNTER → 2023-03-01 | Outpatient (CLI) | payer MEDICARE, OTHER, SELFPAY ==
--- NOTE | 2023-03-01 14:45 | RAD_ITS ---
STUDY: X-RAY - PELVIS AND LEFT HIP REASON FOR EXAM: Female, 72 years old. osteoporosis TECHNIQUE: 3 views of the pelvis and hip. COMPARISON: 11/18/2022. FINDINGS: Stable appearance of visualized right hip arthroplasty. Stable appearance of surgically repaired previous left subcapital femoral neck fracture. Normal bilateral iliac wings, sacroiliac joints and visualized sacrum. Normal bilateral superior and inferior pubic rami. Normal pubic symphysis. Normal bilateral ischial tuberosities. RAD/HIP, UNI W/ Pelvis 2-3 Views IMPRESSION: No significant change or acute abnormality. Electronically Signed: Keshawn Lamb MD at 22:18 EDT ,
== END | disposition home or self-care (01) ==
LOC: RAD 14:45
PROVIDERS: PCP Family Medicine; Referring Provider Family Medicine; Visit Provider Family Medicine
DX: M81.0 Age-related osteoporosis without current pathological fracture (principal)
CPT/HCPCS: 73502

== ENCOUNTER 2023-04-07 13:00 | Outpatient (RCR) | payer MEDICARE, OTHER, SELFPAY ==
--- NOTE | 2023-03-10 13:44 | HP.PTEVAL_ITS ---
Patient's Visit Information Visit Information Visit Information: DUANE MIRANDA is a 72 year old F referred to Physical Therapy by Dr. Alirio Abbott MD with a diagnosis of LBP and L LE pain. Date of Evaluation: 03/10/23 Physical Therapist: Ahsan Rand, PT, ATC Visit Plan Frequency: 2-3x /Week Duration: 4-6 Weeks Plan: B LE strengthening, core stab ex's, postural edu, balance and proprio, and HEP Subjective Subjective: DOI: 08/21/22. Pt reports she was at a pet store when she tripped and fell. Pt reports this fall resulted in L LE pain, mostly due to a fractured L hip. Pt reports she had to have a pin put into the L femur to repair the fracture. Pt reports her R LE has become more painful over the last 6 months. Pt reports she developed LBP as a result of having to use a walker, and notes now her L knee is sore and she feels like her L LE is shorter than the R LE. Pt reports the major reason she went to her doctor was due to the feeling of having a shorter leg on the LE. Pt also complains of L lateral leg pain which she was told was due to her IT band tightness. Pt reports she has had an injection into her L hip recently secondary to bursitis. Pt has stairs at home but is able to negotiate them reciprocally. Pt reports she is limited with ambulation at this time secondary to L hip and LBP. 2/10 pain in LB and L hip while sitting here at rest, 6/10 pain at worst (when she has been walking a lot) Pain LBP: Pain Intensity (Out of 10): 2 Pain Intensity Range: 8 L LE pain: Pain Intensity (Out of 10): 8 Objective Objective: Neuro: B LE sensation is WNL to light touch. B patellar reflex= 2/3. Gait: Pt ambulates with a trendelenburg gait pattern with a limp on the R LE MMT: B LE's are grossly 4-/5 throughout. ROM: B LE's are WNL when compared bilaterally Balance/Special Test Scores Lower Extremity Functional Score: 30 Goals Goal 1:: Decrease LBP and L LE pain x 50% to aid with standing activity Goal Time Frame: 4-6 Weeks Goal 2:: Increase core stability to WNL to eliminate trendelenberg gait pattern Goal Time Frame: 4-6 Weeks Goal 3:: Increase B LE strength x 1 grade to aid with stair negotiation Goal Time Frame: 4-6 Weeks Goal 4:: I with HEP Goal Time Frame: 4-6 Weeks Rehabilitation Potential Physical Therapy Diagnosis: Pt has L hip pain, B LE weakness, and core instability secondary to residual effects from L hip Fx Rehabilitation Potential: Good Anticipated Interventions Patient/Client Instruction: Educate patient on: Condition and Plan of Care For the Purpose of:: To improve self management Therapeutic Exercise to Include: Strength training, Endurance training, Balance training, Flexibilty training, Active ROM and Dynamic Lumbar Stabilization For the Purpose of:: To decrease pain, To increase ROM and To improve muscle performance and motor function Text: Thank you for the opportunity to evaluate your patient. For Medicare and Medicare HMO plans, please review the plan of care and approve it. It will need to be FAXED BACK to us at [phone] for Medicare purposes. For Medicare only, by signing this I certify the plan of care. Please let me know if there are questions or concerns regarding this plan of care. Physician Signature: Date:
--- NOTE | 2023-04-07 14:03 | HP.PTEVAL ---
Patient's Visit Information Visit Information Visit Information: DUANE MIRANDA is a 72 year old F referred to Physical Therapy by Dr. Alirio Abbott MD with a diagnosis of LBP and L LE pain. Date of Evaluation: 03/10/23 Physical Therapist: Ahsan Rand, PT, ATC Visit Plan Frequency: 2-3x /Week Duration: 4-6 Weeks Plan: Discharge to [facility] Subjective Subjective: DOI: 08/21/22. Pt reports she was at a pet store when she tripped and fell. Pt reports this fall resulted in L LE pain, mostly due to a fractured L hip. Pt reports she had to have a pin put into the L femur to repair the fracture. Pt reports her R LE has become more painful over the last 6 months. Pt reports she developed LBP as a result of having to use a walker, and notes now her L knee is sore and she feels like her L LE is shorter than the R LE. Pt reports the major reason she went to her doctor was due to the feeling of having a shorter leg on the LE. Pt also complains of L lateral leg pain which she was told was due to her IT band tightness. Pt reports she has had an injection into her L hip recently secondary to bursitis. Pt has stairs at home but is able to negotiate them reciprocally. Pt reports she is limited with ambulation at this time secondary to L hip and LBP. 2/10 pain in LB and L hip while sitting here at rest, 6/10 pain at worst (when she has been walking a lot) Pain LBP: Pain Intensity (Out of 10): 1 Pain Intensity Range: 8 L LE pain: Pain Intensity (Out of 10): 0 Comment: L hip Objective Objective: Neuro: B LE sensation is WNL to light touch. B patellar reflex= 2/3. Gait: Pt ambulates with a trendelenburg gait pattern with a limp on the R LE MMT: B LE's are grossly 4-/5 throughout. ROM: B LE's are WNL when compared bilaterally Balance/Special Test Scores Oswestry Low Back Score: 1 Lower Extremity Functional Score: 30 TUG Test Time Seconds: 10.99 30 Second Chair Rise Test Seconds: 12 Goals Goal 1:: Decrease LBP and L LE pain x 50% to aid with standing activity Goal Time Frame: 4-6 Weeks Goal 2:: Increase core stability to WNL to eliminate trendelenberg gait pattern Goal Time Frame: 4-6 Weeks Goal 3:: Increase B LE strength x 1 grade to aid with stair negotiation Goal Time Frame: 4-6 Weeks Goal 4:: I with HEP Goal Time Frame: 4-6 Weeks Rehabilitation Potential Physical Therapy Diagnosis: Pt has L hip pain, B LE weakness, and core instability secondary to residual effects from L hip Fx Rehabilitation Potential: Good Anticipated Interventions Patient/Client Instruction: Educate patient on: Condition and Plan of Care For the Purpose of:: To improve self management Therapeutic Exercise to Include: Strength training, Endurance training, Balance training, Flexibilty training, Active ROM and Dynamic Lumbar Stabilization For the Purpose of:: To decrease pain, To increase ROM and To improve muscle performance and motor function Text: Thank you for the opportunity to evaluate your patient. For Medicare and Medicare HMO plans, please review the plan of care and approve it. It will need to be FAXED BACK to us at [phone] for Medicare purposes. For Medicare only, by signing this I certify the plan of care. Please let me know if there are questions or concerns regarding this plan of care. Physician Signature: Date:
--- NOTE | 2023-04-08 16:03 | HP.PTDCSUM ---
Discharge Summary D/C summary: It has been my pleasure to treat DUANE MIRANDA referred by Dr. Alirio Abbott MD, with the diagnosis of LBP and L LE pain for a total of 9 visit(s). Discharge Date: Please see the following information for a summary of their discharge status. Subjective Subjective: Pt reports no pain this date Pain LBP: Pain Intensity (Out of 10): 1 L LE pain: Pain Intensity (Out of 10): 0 Overall Improvement % Improvement: 80 Objective Objective/Function: L LE pain is 1/10, LBP 0/10 L LE strength now 5/5 throughout Pt now ambulates with no gait deviation Pt is I with HEP Goals Goal 1:: Decrease LBP and L LE pain x 50% to aid with standing activity Goal Progress: Goal Met Goal 2:: Increase core stability to WNL to eliminate trendelenberg gait pattern Goal Progress: Goal Met Goal 3:: Increase B LE strength x 1 grade to aid with stair negotiation Goal Progress: Goal Met Goal 4:: I with HEP Goal Progress: Goal Met Plan Plan: Discharge to HEP D/C Information d/c sentence: If there are questions or concerns regarding this patient's physical therapy, please feel free to call me at [phone]. Thank you for the referral of this patient. Sincerely, Ahsan Rand, PT, ATC Balance/Gait/Functional tests Balance/Special Test Scores Oswestry Low Back Score: 1 Lower Extremity Functional Score: 30 TUG Test Time Seconds: 10.99 Tug Test: <20 sec.=mostly independent 30 Second Chair Rise Test Seconds: 12 Improvement % Improvement: 80
== END 2023-04-07 19:00 | disposition home or self-care (01) ==
LOC: PT 13:00
PROVIDERS: PCP Family Medicine; Referring Provider Family Medicine; Visit Provider Family Medicine
DX: M06.9 Rheumatoid arthritis, unspecified (principal); M54.9 Dorsalgia, unspecified; M25.552 Pain in left hip; M25.562 Pain in left knee
CPT/HCPCS: 97110; 97161; 97164; 97530

== ENCOUNTER 2024-07-13 14:00 | Outpatient (RCR) | payer MEDICARE, OTHER, SELFPAY ==
--- NOTE | 2024-07-13 14:38 | HP.PTDCSUM ---
Discharge Summary D/C summary: It has been my pleasure to treat DUANE MIRANDA referred by Ney Holt PA-C, with the diagnosis of L CESAR 06/12/24 for a total of 8 visit(s). Discharge Date: Please see the following information for a summary of their discharge status. Subjective Subjective: I am done with therapy. I dont think this will help Pain L hip: Pain Intensity (Out of 10): 2 Overall Improvement % Improvement: 50 Objective Objective/Function: L hip pain 210 L hip ROM is equal to R hip ROM when compared bilaterally L hip MMT: flex= 16, ext= 22 #F Pt is I with HEP Goals Goal 1:: Decrease L hip pain x 50% to aid with ambulation Goal Progress: Goal Met Goal 2:: Increase L hip strength to equal R hip strength to aid with stair negotiation Goal Progress: Goal Met Goal 3:: Increase L hip ROM x 20 degrees to aid with transfers Goal Progress: Goal Met Goal 4:: I with HEP Goal Progress: Goal Met Plan Plan: Discharge to HEP D/C Information d/c sentence: If there are questions or concerns regarding this patient's physical therapy, please feel free to call me at [phone]. Thank you for the referral of this patient. Sincerely, Ahsan Rand, PT, ATC Balance/Gait/Functional tests Balance/Special Test Scores WOMAC Total Score: 37 WOMAC Percentage: 61.4600 Improvement % Improvement: 50
== END 2024-07-13 19:00 | disposition home or self-care (01) ==
LOC: PT 14:00
PROVIDERS: PCP Family Medicine; Referring Provider Physician Assistant Surgical; Visit Provider Physician Assistant Surgical
DX: S72.002P Fracture of unspecified part of neck of left femur, subsequent encounter for closed fracture with malunion (principal); M25.552 Pain in left hip; T84.84XD Pain due to internal orthopedic prosthetic devices, implants and grafts, subsequent encounter
CPT/HCPCS: 97110; 97161; 97530

== ENCOUNTER → 2024-07-13 | Outpatient (CLI) | payer MEDICARE, OTHER, SELFPAY ==
[2024-07-13 17:53] LABS: Absolute Lymphocyte Count 1.68 X10^3/uL (0.83-4.51); Absolute Neutrophil Count 4.3 X10^3/uL (2.0-7.7); Basophil# 0.06 X10^3/uL; Basophil% 0.9 % (0-1); Eosinophil# 0.39 X10^3/uL; Eosinophils% 5.6 % (0-5); Hematocrit 33.8 % (37-47); Lymphocyte # 1.68 X10^3/ul (0.83-4.51); Lymphocyte % 23.9 % (19-41); Mean Corp Hgb Conc 32.5 g/dL (32-36); Mean Corpuscular Hgb 35.5 pg (27.0-32.0); Mean Platelet Vol. 9.7 fl (6.2-12.0); Monocyte# 0.54 X10^3/uL; Monocyte% 7.7 % (0-10); NRBC Flagged by Analyzer 0 % (0-5); Neutrophil # 4.31 X10^3/uL (2.7-7.7); Neutrophil % 61.3 % (47-70); Platelet Count 282 K/mm3 (150-450); RBC Distribution Width CV 13.7 % (11.6-14.6); RBC Distribution Width SD 54.5 fl (35.1-43.9)
[2024-07-13 18:50] LABS: Anion Gap 13 (5-15); BUN 19 mg/dL (4-19); BUN/Creat Ratio 25.5 RATIO (10-20); Calcium,Total 9.3 mg/dL (7.6-11.0); Carbon Dioxide 23.6 mmol/L (21.0-32.0); Chloride 100 mmol/L (98-108); Creatinine, Serum 0.76 mg/dL (0.70-1.20); EST Glomerular Filtration Rate 84 (>60); Glucose 106 mg/dL (70-99); Magnesium 2.3 mg/dL (1.5-2.2); Potassium 4.2 mmol/L (3.3-5.1); Sodium Level 136 mmol/L (133-145)
== END | disposition home or self-care (01) ==
LOC: MTLAB 14:41
PROVIDERS: PCP Family Medicine; Referring Provider Family Medicine; Visit Provider Family Medicine
DX: E87.6 Hypokalemia (principal); D64.9 Anemia, unspecified
CPT/HCPCS: 36415; 80048; 83735; 85025

== ENCOUNTER → 2024-09-04 | Outpatient (CLI) | payer MEDICARE, OTHER, SELFPAY | END | disposition home or self-care (01) | LOC: MTLAB 13:29 | PROVIDERS: PCP Family Medicine; Referring Provider Internal Medicine Medical Oncology; Visit Provider Internal Medicine Medical Oncology | DX: D64.9 Anemia, unspecified (principal) | CPT/HCPCS: 82274 ==

== ENCOUNTER → 2024-10-09 | Outpatient (CLI) | payer MEDICARE, OTHER, SELFPAY ==
[2024-10-09 20:21] LABS: Absolute Lymphocyte Count 1.54 X10^3/uL (0.83-4.51); Absolute Neutrophil Count 2.5 X10^3/uL (2.0-7.7); Basophil# 0.05 X10^3/uL; Eosinophil# 0.35 X10^3/uL; Eosinophils% 7.1 % (0-5); Hematocrit 34.9 % (37-47); Hemoglobin 11.4 g/dL (12.0-15.0); Lymphocyte # 1.54 X10^3/ul (0.83-4.51); Mean Corp Hgb Conc 32.7 g/dL (32-36); Mean Corpuscular Hgb 33.5 pg (27.0-32.0); Mean Corpuscular Volume 102.6 fL (81-99); Mean Platelet Vol. 10.6 fl (6.2-12.0); Monocyte# 0.49 X10^3/uL; Monocyte% 9.9 % (0-10); NRBC Flagged by Analyzer 0 % (0-5); Neutrophil # 2.51 X10^3/uL (2.7-7.7); Neutrophil % 50.6 % (47-70); Platelet Count 252 K/mm3 (150-450); RBC Distribution Width CV 14.1 % (11.6-14.6)
[2024-10-09 20:35] LABS: ALB/GLOB Ratio 1.8 RATIO (0.9-2.4); AST(SGOT) 22 U/L (<=31); Alanine Aminotransfer ALT/SGPT 14 U/L (<=34); Albumin, Serum 4.2 g/dL (3.4-4.8); Alkaline Phosphatase 85 U/L (35-104); Anion Gap 11 (5-15); BUN 17 mg/dL (4-19); BUN/Creat Ratio 23.1 RATIO (10-20); Calcium,Total 9.7 mg/dL (7.6-11.0); Carbon Dioxide 25.3 mmol/L (21.0-32.0); Chloride 101 mmol/L (98-108); Creatinine, Serum 0.75 mg/dL (0.70-1.20); EST Glomerular Filtration Rate 85 (>60); Ferritin 30 ng/mL (22-378); Globulin 2.4 g/dL (2.2-4.2); Glucose 84 mg/dL (70-99); Potassium 4.3 mmol/L (3.3-5.1); Protein, Total 6.6 g/dL (5.9-8.4); Sodium Level 137 mmol/L (133-145); Total Bilirubin 0.38 mg/dL (0.00-1.30)
== END | disposition home or self-care (01) ==
LOC: MTLAB 14:19
PROVIDERS: PCP Family Medicine; Referring Provider Family Medicine; Visit Provider Family Medicine
DX: D64.9 Anemia, unspecified (principal); R25.2 Cramp and spasm
CPT/HCPCS: 36415; 80053; 82728; 84443; 85025